=== PATIENT | female | born 1950 | race Caucasian/White ===

== ENCOUNTER → 2016-09-14 | Day surgery (SDC) | payer MEDICARE, BC ==
[~2016-09-14] MED LIST: IOHEXOL 180 MG/ML 1 ML ML ONE; LACTATED RINGERS 1,000 ML IV SCH; LIDOCAINE 1% 20 ML VIAL (10MG/ML) FOR IV START INTRADERMA ONE; MIDAZOLAM 2 MG/2 ML VIAL ONE; TRIAMCINOLONE ACETONIDE 40 MG/ML 1 ML VIAL ONE; fentaNYL (PF) 50 MCG/ML 2 ML AMP ONE
[2016-09-14 07:29] VITALS: TEMP 98.2
--- NOTE | 2016-09-14 08:53 | P.PCN ---
Date of Procedure: 09/14/16 Procedure(s) Performed: PREOPERATIVE DIAGNOSIS:1- Lumbar post laminectomy syndrome. 2-cervical spondylosis with cervical facet arthropathy without myelopathy. 3-cervical degenerative disc disease POSTOPERATIVE DIAGNOSIS: Same as preoperative diagnosis PROCEDURE: 1. Caudal epidural steroid injection under fluoroscopic guidance. 2. Caudal epidurogra ANESTHESIA =Local with 1% lidocaine; 5ml for subcutaneous infiltrations and IV versed 1 mg ,and fentanyl 50 mcg EBL: None. PROCEDURE INDICATION: The patient with neuropathic pain radiating distally returns for caudal epidural steroid injection. PROCEDURE DESCRIPTION: The patient was seen and identified in the preoperative area. Risks, benefits, complications, and alternatives were discussed with the patient. The patient agreed to proceed with the procedure and signed the consent. IV was started, and vital signs were stable. Patient was taken to the OR and time out was completed. The patient was placed in the prone position on procedure table and a pillow was placed under the abdomen to reduce lumbar lordosis. The lumbosacral area was prepped and draped in the usual sterile fashion. Critical pause was taken. Vital signs were closely monitored during the procedure. Using lateral fluoroscopy the anterior-posterior plates of the sacrum were identified and the skin and deeper tissues corresponding into sacrococcygeal ligament were anesthetized using approximately 3 mL of 1% lidocaine. Then under fluoroscopy, a 3-1/2-inch 20-gauge Tuohy epidural needle was guided through the sacrococcygeal ligament, and into the epidural space. After negative aspiration , a 2 mL of omnipaque-180 contrast dye was injected with excellent epidurogram. Again after negative aspiration for CSF, blood, and with no paresthesias, Kenalog 80mg, 2ml of 1% preservative free Lidocaine with 6 ml of preservative free normal saline(total of 10ml)solution was injected with washout of epidurogram. Needle was withdrawn intact. Skin was cleansed, and bandage was applied. COMPLICATIONS: None DISPOSITION / PLANS: The patient was placed in a supine position and transferred to the recovery area in a stable condition for observation and was discharged from the recovery room after meeting discharge criteria. Home discharge instructions given to the patient by the staff. The patient was reexamined prior to discharge. The patient will schedule a follow up in the clinic in 2-4 weeks. Patient was seen in the office a few weeks ago and she was complaining of neck pain we ordered MRI of the cervical spine on the MRI showed patient had cervical spondylosis with cervical facet arthropathy, and also cervical degenerative disc disease, the patient will be seen in the office in a few weeks and will discuss with the patient the option of doing diagnostic medial branch block cervical area, to help her neck pain
[2016-09-14] MEDS: IV FLUID CONTINUATION 1,000 ML IV ONE ×2 (09:00→09:22)
--- NOTE | 2016-09-14 09:10 | FL ---
EXAMINATION TYPE: FL guided pain mgmt statistic DATE OF EXAM: 09/14/2016 8:54 AM CLINICAL HISTORY: Low back and sacral pain. TECHNIQUE: Fluoroscopy. COMPARISON: None. FINDINGS: Fluoroscopic guidance was provided during pain relief procedure performed by Dr. Andino . A total of 10 seconds of fluoroscopic time was utilized during the procedure and two spot images a re acquired. Images acquired shows needle localization at level of the sacrum. IMPRESSION: As Above.
[2016-09-14 09:19] VITALS: BP 144/66; PULSE 71; RESP 16
== END ==
LOC: ORPAIN 06:45
PROVIDERS: ATTEND Specialist
DX: M96.1 Postlaminectomy syndrome, not elsewhere classified (principal); M51.36 Other intervertebral disc degeneration, lumbar region; M47.812 Spondylosis without myelopathy or radiculopathy, cervical region; M46.92 Unspecified inflammatory spondylopathy, cervical region; M50.30 Other cervical disc degeneration, unspecified cervical region; Z79.82 Long term (current) use of aspirin
CPT/HCPCS: 62323; 99152; J2250; J3301; Q9965; J3010

== ENCOUNTER → 2016-09-21 | Outpatient (CLI) | payer MEDICARE, BC ==
[2016-09-21 14:24] VITALS: BP 156/70; PULSE 73; RESP 16
--- NOTE | 2016-09-21 14:36 | P.PN ---
Progress Note - Text Patient returns for followup for chronic neck and back pain with radiation to legs. Patient recently underwent caudal epidural steroid injection x 2 with good relief of her back and leg pain but now is complaining of neck pain. Patient previously had cervical RFAs in 2015 with good relief Patient continues on medications from PCP for pain with good relief. Patient denies adverse drug effects from medications. Today, pt denies new-onset weakness, bowel/bladder incontinence, or any other signs or symptoms of cauda equina syndrome. There are no signs of acute intoxication, and no indications of medication diversion or overuse. In addition to above, 13-point review of systems is also negative for chest pain , shortness of breath, changes in vision, changes in hearing, new onset weakness , abdominal pain, diarrhea, extreme fatigue, malaise, fever, skin changes, homicidal or suicidal ideation, or bowel or bladder incontinence. Vital Signs: Reviewed in EMR Gen: WDWN, AAOx3, NAD HEENT: NCAT, EOMI, hearing grossly normal Pulm: resp unlabored Abd: soft, NT, ND Neck: supple, trachea midline ROM in flexion cervical spine: reduced ROM in extension cervical spine: reduced Cervical paravertebral tenderness: + Cervical Facet tenderness: ++ Spurling's: neg Upper extremity: decreased strength due to pain ROM in flexion lumbar spine: reduced ROM in extension lumbar spine: reduced Lumbar paravertebral tenderness: + L > R Facet loading: ++ Neuro: CN II-XII grossly intact, muscle strength lower extremities PRESERVED Imaging: Reviewed in EMR Assessment: 1. lumbar postlaminectomy syndrome 2. cervical spondylosis without myelopathy 3. lumbar spondylosis without myelopathy Plan: 1. Explanation: Opioid and psychological risk scores were reviewed. Diagnoses , prognoses, and multiple treatment options including but not limited to physical therapy, interventional therapies, adjuvant medical therapies, narcotic medication therapies, and surgery were discussed with the patient and all questions were answered to the patient's satisfaction. 2. Opioid agreement: no narcotics prescribed 3. Counseling: The patient was counseled extensively on BODY MASS INDEX, EXERCISE. Specifically, the patient was instructed regarding the importance of weight loss and exercise in the context of both chronic pain and overall health. 4. Procedures: repeat left then right cervical RFA 5. Consultations: None 6. Investigations: None 7. Medications: none prescribed 8. Disposition: f/u for procedure as scheduled PQRS measures: 1-Patient's medications are documented in the chart. 2-Tobacco use is negative 3-Patient has had a pneumococcal vaccine. 4-Advanced care planning discussed, patient unable to give. 5-Opioid contract signed with the patient. 6-Pain positive, follow-up visit or procedure scheduled 7-Patient's blood pressure measured and documented, within normal limits. 8-Patient's weight was measured, and body mass index ABOVE the normal limits, and counseling was done. Patient instructed to follow up with PCP. 9-Patient WAS NOT identified as an unhealthy alcohol user.
== END | disposition home or self-care (01) ==
LOC: PNWHC3 14:02
PROVIDERS: ATTEND Anesthesiology
DX: M96.1 Postlaminectomy syndrome, not elsewhere classified (principal); M47.812 Spondylosis without myelopathy or radiculopathy, cervical region; M47.816 Spondylosis without myelopathy or radiculopathy, lumbar region
CPT/HCPCS: 99211

== ENCOUNTER → 2017-05-19 | Outpatient (CLI) | payer MEDICARE, BC ==
--- NOTE | 2017-05-19 12:19 | P.PN ---
Progress Note - Text Patient returns for followup for chronic neck and back pain with radiation to legs, worst in R low back and hip area. Patient has not been to our clinic since September of 2016 and returns with complaints of low back and neck pain. In late 2015, patient underwent caudal epidural steroid injection x 2 with good relief of her back and leg pain and previously had cervical RFAs in 2014 with good relief. Patient has seen Dr. Urban who diagnosed her with SIJ dysfunction. Patient continues on occasional medications from PCP for pain with good relief. Patient denies adverse drug effects from medications. Today, pt denies new-onset weakness, bowel/bladder incontinence, or any other signs or symptoms of cauda equina syndrome. There are no signs of acute intoxication, and no indications of medication diversion or overuse. In addition to above, 13-point review of systems is also negative for chest pain , shortness of breath, changes in vision, changes in hearing, new onset weakness , abdominal pain, diarrhea, extreme fatigue, malaise, fever, skin changes, homicidal or suicidal ideation, or bowel or bladder incontinence. Vital Signs: Reviewed in EMR Gen: WDWN, AAOx3, NAD HEENT: NCAT, EOMI, hearing grossly normal Pulm: resp unlabored Abd: soft, NT, ND Neck: supple, trachea midline ROM in flexion lumbar spine: reduced ROM in extension lumbar spine: reduced Lumbar paravertebral tenderness: + L > R Facet loading: ++ Straight leg raise: neg SIJ tenderness: bilateral Juan's: + bilateral, R > L Neuro: CN II-XII grossly intact, muscle strength lower extremities PRESERVED Imaging: Reviewed in EMR Assessment: 1. lumbar postlaminectomy syndrome 2. cervical spondylosis without myelopathy 3. lumbar spondylosis without myelopathy 4. SI joint dysfunction Plan: 1. Explanation: Opioid and psychological risk scores were reviewed. Diagnoses , prognoses, and multiple treatment options including but not limited to physical therapy, interventional therapies, adjuvant medical therapies, narcotic medication therapies, and surgery were discussed with the patient and all questions were answered to the patient's satisfaction. 2. Opioid agreement: no opioids prescribed today 3. Counseling: The patient was counseled extensively on BODY MASS INDEX, EXERCISE. Specifically, the patient was instructed regarding the importance of weight loss and exercise in the context of both chronic pain and overall health. 4. Procedures: bilateral SIJ injection x 2, consider repeat caudal ESIs in future if little relief 5. Consultations: None 6. Investigations: None 7. Medications: none prescribed 8. Disposition: f/u for procedure as scheduled PQRS measures: 1-Patient's medications are documented in the chart. 2-Tobacco use is negative 3-Patient has had a pneumococcal vaccine. 4-Advanced care planning discussed, patient unable to give. 5-Opioid contract signed with the patient. 6-Pain positive, follow-up visit or procedure scheduled 7-Patient's blood pressure measured and documented, within normal limits. 8-Patient's weight was measured, and body mass index ABOVE the normal limits, and counseling was done. Patient instructed to follow up with PCP. 9-Patient WAS NOT identified as an unhealthy alcohol user.
[2017-05-19 12:41] VITALS: BP 118/69; PULSE 86; RESP 16; TEMP 96
== END | disposition home or self-care (01) ==
LOC: PNWHC3 11:45
PROVIDERS: ATTEND Anesthesiology
DX: M96.1 Postlaminectomy syndrome, not elsewhere classified (principal); M47.812 Spondylosis without myelopathy or radiculopathy, cervical region; M47.816 Spondylosis without myelopathy or radiculopathy, lumbar region; M53.3 Sacrococcygeal disorders, not elsewhere classified; Z79.899 Other long term (current) drug therapy
CPT/HCPCS: 99211

== ENCOUNTER 2017-05-23 06:47 | Day surgery (SDC) | payer MEDICARE, BC ==
[2017-05-20 08:43] VITALS: BMI 29.2
[~2017-05-23 06:47] MED LIST changes: -IOHEXOL 180 MG/ML 1 ML ML ONE; -LIDOCAINE 1% 20 ML VIAL (10MG/ML) FOR IV START INTRADERMA ONE; -MIDAZOLAM 2 MG/2 ML VIAL ONE; -TRIAMCINOLONE ACETONIDE 40 MG/ML 1 ML VIAL ONE; -fentaNYL (PF) 50 MCG/ML 2 ML AMP ONE
[2017-05-23] MEDS ORDERED: LIDOCAINE 1% 20 ML VIAL (10MG/ML) FOR IV START INTRADERMA ONE (06:51)
[2017-05-23 06:54] VITALS: RESP 16; TEMP 97.9
--- NOTE | 2017-05-23 07:30 | P.PCN ---
Date of Procedure: 05/23/17 Preoperative Diagnosis: Bilateral sacroiliitis Postoperative Diagnosis: Same as above Procedure(s) Performed: Bilateral sacroiliac joint steroid injection under fluoroscopic guidance Anesthesia: other ( moderate conscious sedation with IV fentanyl and Versed) Surgeon: Dana Walker Pathology: none sent Condition: stable Disposition: PACU Description of Procedure: the patient was seen and identified in the preoperative holding area, risks and benefits and alternative of the procedure and possible complications discussed with the patient, patient signed the consent. an IV was started, and vital signs were monitored and were stable throughout the procedure, patient was placed in the prone position or table and the lumbosacral area was prepped and draped with a sterile fashion, vital signs were closely monitored during the procedure.The right sacroiliac joint was identified on the AP view of fluoroscopy then the C-arm was tilted to the left oblique position to superimpose the anterior and posterior joint lines on each other and to have a unified joint line with the target point at the inferior one third of this line. I used 22-gauge 3-1/2 inch Quincke spinal needle for this procedure and after getting into the sacroiliac joint I injected 20 mg of Kenalog +2 MLS of Marcaine 0.5%. The same procedure was repeated on the left side by tilting the C-arm to the right oblique position this time. At the target point was also at the inferior one third of this unified joint line. Using a 22-gauge 3-1/2 inch Quincke spinal needle I injected 20 mg of Kenalog plus 2 MLS of Marcaine 0.5%. Patient tolerated the procedure well without any complication, The patient returned to supine position after the back was cleaned and a Band- Aid applied, the patient transported to recovery room in stable condition and he was monitored for 30 minutes before he was discharged home and then patient was reexamined before going home and patient was discharged in stable condition and patient will follow up with the pain clinic in a few weeks
[2017-05-23] MEDS ORDERED: IV FLUID CONTINUATION 1,000 ML IV ONE (07:33)
--- NOTE | 2017-05-23 07:44 | FL ---
EXAMINATION TYPE: FL guided pain mgmt statistic DATE OF EXAM: 05/23/2017 CLINICAL HISTORY: Low back pain. TECHNIQUE: Fluoroscopy. COMPARISON: None. FINDINGS: Fluoroscopic guidance was provided during pain relief procedure performed by Dr. Andino . A total of 15 seconds of fluoroscopic time was utilized during the procedure and two spot images a re acquired. Images acquired shows needle localization at the SI joints. IMPRESSION: As Above.
[2017-05-23 08:06] VITALS: BP 143/70; PULSE 78
== END 2017-05-23 08:16 | disposition home or self-care (01) ==
LOC: ORPAIN 06:47
PROVIDERS: ATTEND Anesthesiology
DX: M46.1 Sacroiliitis, not elsewhere classified (principal)
CPT/HCPCS: 99152; J2250; J3301; J3010; G0260

== ENCOUNTER 2017-06-09 08:21 | Day surgery (SDC) | payer MEDICARE, BC ==
[2017-06-09 09:20] VITALS: TEMP 98
--- NOTE | 2017-06-09 10:18 | P.PCN ---
Date of Procedure: 06/09/17 Procedure(s) Performed: Preoperative diagnoses= 1-bilateral sacroiliitis. Postoperative diagnoses= same as preoperative diagnosis. Procedure= bilateral sacroiliac joint steroid injection under fluoroscopic guidance. Anesthesia= conscious sedation with Versed 2 mg and fentanyl 100 micrograms and local infiltration with lidocaine 1% 4 ml Estimated blood loss=minimal. Procedure indication= the patient had a history of severe chronic low back pain , diagnosed with sacroiliitis and lumbar sacral facet arthropathy unresponsive to conservative treatment. Procedure description= the patient was seen and identified in the preoperative holding area, risks and benefits and alternative of the procedure and possible complications discussed with the patient, and he agreed with the preceding, patient signed the consent, an IV was started, and vital signs were monitored and were stable throughout the procedure, patient was placed in the prone position or table and the lumbosacral area was prepped and draped with a sterile fashion, vital signs were closely monitored during the procedure, the fluoroscopy camera was placed in the contralateral oblique view on the right sacroiliac joint and the lower part of the joint was identified, local infiltration of the skin and subcutaneous tissue with lidocaine 1% 2 mL then a 22-gauge Quincke-type spinal needle advanced slowly under fluoroscopy and placed in the posterior and inferior border of the right sacroiliac joint, placement confirmed with AP and lateral view, and after appropriate needle placement confirmed and after negative aspiration for heme and CSF and there was no paresthesia during the injection, 3 ml of Marcaine 0.5% and 40 mg of Kenalog injected after negative aspiration, the needle removed, and the entire same procedure was repeated for the left sacroiliac joint Patient tolerated the procedure well without any complication, The patient returned to supine position after the back was cleaned and a Band- Aid applied, the patient transported to recovery room in stable condition and he was monitored for 30 minutes before he was discharged home and then patient was reexamined before going home and patient was discharged in stable condition and patient will follow up with the pain clinic in a few weeks
[2017-06-09] MEDS ORDERED: IV FLUID CONTINUATION 600 ML IV ONE (10:25)
[2017-06-09 10:31] VITALS: RESP 18
[2017-06-09 11:00] VITALS: BP 122/70; PULSE 83
--- NOTE | 2017-06-09 13:39 | FL ---
EXAMINATION TYPE: FL guided pain mgmt statistic DATE OF EXAM: 06/09/2017 FLUOROSCOPY Fluoroscopy time of 6 seconds was used during bilateral SI joint injection. 2 image/s document/s the procedure.
== END 2017-06-09 11:01 | disposition home or self-care (01) ==
LOC: ORPAIN 08:21
PROVIDERS: ATTEND Specialist
DX: G89.29 Other chronic pain (principal); M46.1 Sacroiliitis, not elsewhere classified
CPT/HCPCS: J2250; J3301; J3010; G0260; 99152

== ENCOUNTER 2017-07-07 07:40 | Day surgery (SDC) | payer MEDICARE, BC ==
[2017-07-05 14:39] VITALS: BMI 30.2
[2017-07-07 08:20] VITALS: RESP 16; TEMP 98.1
[2017-07-07] MEDS ORDERED: LIDOCAINE 1% 20 ML VIAL (10MG/ML) FOR IV START INTRADERMA ONE (08:23)
--- NOTE | 2017-07-07 09:24 | P.PCN ---
Date of Procedure: 07/07/17 Procedure(s) Performed: PREOPERATIVE DIAGNOSIS: 1-Lumbosacral spondylosis with facet arthropathy without myelopathy. 2-sacroiliit. 3-sacroiliac joint dysfunction 4- FBSS post operative Diagnosis: Same as Pre operative Diagnosis PROCEDURES: 1- Right radiofrequency thermocoagulation/ablation of the L5 dorsal ramus. 2- Right multi-site radiofrequency thermocoagulation/ablation of the S1, S2, lateral branchs. The procedure was performed using fluoroscopic guidance during needle placement to assure proper position and maximize safety . ANESTHESIA: LOCAL ANESTHESIA and IV sedation with versed 2 mg and Fentanyle 100 mcg EBL: NONE INDICATION/MEDICAL NECESSITY: History of low back pain secondary to sacroiliitis /sacroiliac joint dysfunction ,and lumbosacral arthropathy unresponsive to more conservative treatments. The patient reported more than 50% relief of pain symptoms following 2 previous diagnostic blocks with Bupivacaine. PROCEDURE DESCRIPTION: The patient was seen and identified in the preoperative area. Risks, benefits, complications, and alternatives were discussed with the patient. The patient agreed to proceed with the procedure and signed the consent. Vital signs were checked before and after the procedure and they remained stable. Patient ambulated to the procedure room and time out was completed. The patient was placed in the prone position on the procedure table and a pillow was placed under the abdomen to reduce lumbar lordosis. The lumbosacral area was prepped and draped in the usual sterile fashion. Critical pause was taken. L5 Dorsal Ramus RF: Using right oblique fluoroscopy, the junction of the transverse process and the superior articular process of the right S1 vertebra, which correspond to the fluoroscopic image of the "eye of the Maurice dog" was identified. Subsequently, a 10-cm 20 -gauge radiofrequency cannula with a 10-mm active tip was advanced under fluoroscopic guidance until contact was made with periosteum. At this level, the Sensory testing of the L5 dorsal ramus was performed at 50 Hz and 0 to 1 volt with production of concordant pain starting at 0.5 volt. Motor stimulation was done at 2.5 Hz with stimulation of mulitifidus muscle contration . No radicular symptoms or paresthesias were produced during the testing. Subsequently, the L5 dorsal ramus was subjected to a radiofrequency ablation at 80 degree celsius for 90 seconds . after 0.5% Bupivacaine 1 ml injected at each level after negative aspirations . S1, S3, Lateral Branch RF: The lateral margins of the Right S1, S2, foramina were identified using AP fluoroscopy. Under fluoroscopic guidance, three 10-cm 20 -gauge radiofrequency cannula with a 10-mm active tip were inserted at 8-10 mm peripheral to the posterior S1 foramen, at various locations using clock-face coordinates. The center of the clock was registered at the lateral margin of the foramen. The 2: 30, 4:00, and 5:30 oclock positions were used. At this level, the sensory testing of the S1 lateral branch was performed at 50 Hz and 0 to 1 volt at the three levels with production of concordant pain starting at 0.5 volt. Motor stimulation was done at 2.5 Hz. No radicular symptoms or paresthesias were produced during the testing. Subsequently, the S1 lateral branch was subjected to a radiofrequency ablation at a mode of 90 seconds at 80 degrees Celsius at the 3 levels after negative motor and sensory testing and after injecting 0.5 ml of preservative free Bupivacaine 0.5 %. The same procedure was performed at the level of the S2 foramen. I couldn't visualize S3 foraminal for this reason the frequency of the lateral branches of a history and was not done Total 8 ML OF MARCAINE 0.5% WITH 40 MG OF KENALOG , The needle was withdrawn intact after each injection. COMPLICATIONS: The patient tolerated the procedure well without any acute complications. DISPOSTION/PLAN: The patient ambulated to the recovery area after the procedure in a stable condition for observation. Patient was reexamined prior to discharge. Patient was observed for 30 minutes in the recovery area and was discharged home, accompanied by an adult, after meeting discharged criteria. Discharge instructions were give to the patient by the staff. Patient was specifically instructed not to drive today and to rest for the rest of the day. The patient will schedule a follow up visit in the clinic in weeks or earlier if needed.
[2017-07-07] MEDS ORDERED: IV FLUID CONTINUATION 1,000 ML IV ONE (09:26)
[2017-07-07 09:36] VITALS: BP 124/83; PULSE 82
--- NOTE | 2017-07-07 09:52 | FL ---
EXAMINATION TYPE: FL guided pain mgmt statistic DATE OF EXAM: 07/07/2017 CLINICAL HISTORY: Low back and sacroiliac joint pain. TECHNIQUE: Fluoroscopy. COMPARISON: None. FINDINGS: Fluoroscopic guidance was provided during pain relief procedure performed by Dr. Andino . A total of 1 minute 9 seconds of fluoroscopic time was utilized during the procedure and 6 spot im ages are acquired. Images acquired shows needle localization at several levels in the lower lumbar s pine and sacrum. IMPRESSION: As Above.
== END 2017-07-07 09:58 | disposition home or self-care (01) ==
LOC: ORPAIN 07:40
PROVIDERS: ATTEND Specialist
DX: M47.817 Spondylosis without myelopathy or radiculopathy, lumbosacral region (principal); M46.97 Unspecified inflammatory spondylopathy, lumbosacral region; M53.3 Sacrococcygeal disorders, not elsewhere classified
CPT/HCPCS: 64640 ×2; 64635; J2250; J3301; J3010; 99152; 99153

== ENCOUNTER → 2017-09-12 | Outpatient (CLI) | payer MEDICARE, BC ==
[2017-09-12 12:07] VITALS: BP 139/81; PULSE 81; RESP 16; TEMP 97.6
--- NOTE | 2017-09-12 12:36 | P.PN ---
Progress Note - Text Progress Note Date: 09/12/17 Patient returns for followup for chronic neck and back pain with radiation to legs, worst in R low back and hip area. Patient underwent bilateral SIJ RFA and has some pain in her RLE all the way down to her toes that she describes as a soreness, without neuropathic characteristics; this pain is improving since the last couple of weeks. Patient continues on occasional Capac medications from PCP for pain with good relief. Patient denies adverse drug effects from medications. Today, pt denies new-onset weakness, bowel/bladder incontinence, or any other signs or symptoms of cauda equina syndrome. There are no signs of acute intoxication, and no indications of medication diversion or overuse. In addition to above, 13-point review of systems is also negative for chest pain , shortness of breath, changes in vision, changes in hearing, new onset weakness , abdominal pain, diarrhea, extreme fatigue, malaise, fever, skin changes, homicidal or suicidal ideation, or bowel or bladder incontinence. Vital Signs: Reviewed in EMR Gen: WDWN, AAOx3, NAD HEENT: NCAT, EOMI, hearing grossly normal Pulm: resp unlabored Abd: soft, NT, ND Neck: supple, trachea midline ROM in flexion lumbar spine: reduced ROM in extension lumbar spine: reduced Lumbar paravertebral tenderness: + L > R Facet loading: ++ Straight leg raise: neg SIJ tenderness: bilateral Juan's: + bilateral, R > L Neuro: CN II-XII grossly intact, muscle strength lower extremities PRESERVED Imaging: Reviewed in EMR Assessment: 1. lumbar postlaminectomy syndrome 2. cervical spondylosis without myelopathy 3. lumbar spondylosis without myelopathy 4. SI joint dysfunction Plan: 1. Explanation: Opioid and psychological risk scores were reviewed. Diagnoses , prognoses, and multiple treatment options including but not limited to physical therapy, interventional therapies, adjuvant medical therapies, narcotic medication therapies, and surgery were discussed with the patient and all questions were answered to the patient's satisfaction. 2. Opioid agreement: no opioids prescribed today 3. Counseling: The patient was counseled extensively on BODY MASS INDEX, EXERCISE. Specifically, the patient was instructed regarding the importance of weight loss and exercise in the context of both chronic pain and overall health. 4. Procedures: LESI [id number] or caudal SHREYAS if patient's RLE pain doesn't improve 5. Consultations: None 6. Investigations: None 7. Medications: none prescribed 8. Disposition: f/u for procedure as scheduled in 4 weeks PQRS measures: 1-Patient's medications are documented in the chart. 2-Tobacco use is negative 3-Patient has had a pneumococcal vaccine. 4-Advanced care planning discussed, patient unable to give. 5-Opioid contract signed with the patient. 6-Pain positive, follow-up visit or procedure scheduled 7-Patient's blood pressure measured and documented, within normal limits. 8-Patient's weight was measured, and body mass index ABOVE the normal limits, and counseling was done. Patient instructed to follow up with PCP. 9-Patient WAS NOT identified as an unhealthy alcohol user.
== END | disposition home or self-care (01) ==
LOC: PNWHC3 11:56
PROVIDERS: ATTEND Anesthesiology
DX: M47.812 Spondylosis without myelopathy or radiculopathy, cervical region (principal); M47.816 Spondylosis without myelopathy or radiculopathy, lumbar region; M53.3 Sacrococcygeal disorders, not elsewhere classified; M96.1 Postlaminectomy syndrome, not elsewhere classified; Z79.899 Other long term (current) drug therapy
CPT/HCPCS: 99211

== ENCOUNTER 2017-10-12 08:01 | Day surgery (SDC) | payer MEDICARE, BC ==
[2017-10-12 08:29] VITALS: TEMP 97.9
[2017-10-12] MEDS: LACTATED RINGERS 1,000 ML IV ONE ×2 (08:32→09:18)
[2017-10-12] MEDS ORDERED: LIDOCAINE 1% 20 ML VIAL (10MG/ML) FOR IV START INTRADERMA ONE (08:32)
--- NOTE | 2017-10-12 09:36 | P.PCN ---
Date of Procedure: 10/12/17 Procedure(s) Performed: PREOPERATIVE DIAGNOSIS: 1-Lumbar post laminectomy syndrome. 2-bilateral sacroiliitis POSTOPERATIVE DIAGNOSIS:1- Lumbar post laminectomy syndrome. 2-bilateral sacroiliitis PROCEDURE: 1. Caudal epidural steroid injection under fluoroscopic guidance. 2. Caudal epidurogra ANESTHESIA: Local with 1% lidocaine; 5ml for subcutaneous infiltrations and IV versed 2 mg ,and fentanyl 100 mcg EBL: None. PROCEDURE INDICATION: The patient with neuropathic pain radiating distally returns for caudal epidural steroid injection. PROCEDURE DESCRIPTION: The patient was seen and identified in the preoperative area. Risks, benefits, complications, and alternatives were discussed with the patient. The patient agreed to proceed with the procedure and signed the consent. IV was started, and vital signs were stable. Patient was taken to the OR and time out was completed. The patient was placed in the prone position on procedure table and a pillow was placed under the abdomen to reduce lumbar lordosis. The lumbosacral area was prepped and draped in the usual sterile fashion. Critical pause was taken. Vital signs were closely monitored during the procedure. Using lateral fluoroscopy the anterior-posterior plates of the sacrum were identified and the skin and deeper tissues corresponding into sacrococcygeal ligament were anesthetized using approximately 3 mL of 1% lidocaine. Then under fluoroscopy, a 3-1/2-inch 20-gauge Tuohy epidural needle was guided through the sacrococcygeal ligament, and into the epidural space. After negative aspiration , a 2 mL of omnipaque-180 contrast dye was injected with excellent epidurogram. Again after negative aspiration for CSF, blood, and with no paresthesias, Kenalog 80mg, 2ml of 1% preservative free Lidocaine with 6 ml of preservative free normal saline(total of 10ml)solution was injected with washout of epidurogram. Needle was withdrawn intact. Skin was cleansed, and bandage was applied. COMPLICATIONS: None DISPOSITION / PLANS: The patient was placed in a supine position and transferred to the recovery area in a stable condition for observation and was discharged from the recovery room after meeting discharge criteria. Home discharge instructions given to the patient by the staff. The patient was reexamined prior to discharge. The patient will schedule a follow up in the clinic in 2-4 weeks.
[2017-10-12] MEDS ORDERED: IV FLUID CONTINUATION 700 ML IV ONE (09:45)
--- NOTE | 2017-10-12 09:50 | FL ---
EXAMINATION TYPE: FL guided pain mgmt statistic DATE OF EXAM: 10/12/2017 COMPARISON: NONE HISTORY: Fluoroscopic guidance during a caudal epidural TECHNIQUE: Fluoroscopy. FINDINGS/IMPRESSION: Fluoroscopic guidance was provided during procedure performed by Dr. Andino. A total of 9 seconds of fluoroscopic time was utilized during the procedure and 2 spot images was ac quired demonstrating localization of the level of the sacrum.
[2017-10-12 09:51] VITALS: PULSE 85; RESP 16
[2017-10-12 10:18] VITALS: BP 116/69
--- NOTE | 2017-10-14 10:58 | CDI ---
Date: 10/14/17 CDS/Outreach Assistant Name: Kristine Engel Phone: If any questions, call Ilana Ackerman Kosher Butcher at [phone] Patient Name: Libertad Holbrook Admit Date: 10/12/17 Discharge Date: 10/12/17 ATTENTION: The [facility] Coding Staff appreciate your assistance in clarifying documentation. Please respond to the clarification below the line at the bottom and electronically sign. The [facility] Coding staff will review the response and follow-up if needed. Please note: Queries are made part of the Legal Health Record. If you have any questions, please contact the Kosher Butcher. Dear Dr. Walker, Please provide clarification as to what type of sedation was used for this procedure. Please clarify if it was conscious/Moderate sedation or unconscious/ MAC sedation. There is no documentation on the operative report and nothing checked on the Pain Procedure Record. Thank you for your kind consideration. MTDD
--- NOTE | 2017-10-18 06:39 | CDI ---
Date: 10/18/17 CDS/Airfreight Operations Agent Name: Kristine Engel Phone: If any questions, call Ilana Ackerman Test Architect at [phone] Patient Name: Libertad Holbrook Admit Date: 10/12/17 Discharge Date: 10/12/17 ATTENTION: The [facility] Coding Staff appreciate your assistance in clarifying documentation. Please respond to the clarification below the line at the bottom and electronically sign. The [facility] Coding staff will review the response and follow-up if needed. Please note: Queries are made part of the Legal Health Record. If you have any questions, please contact the Test Architect. Dear Please provide clarification on the type of sedation used. Please clarify if it was conscious/Moderate sedation or MAC/unconscious sedation. Nothing is stated on the Operatve report and nothing checked on the Pre-anesthesia record. Thank you for your kind consideration. MTDD
--- NOTE | 2017-10-25 07:33 | P.PN ---
Progress Note - Text Progress Note Date: 10/25/17 This is an addendum to the procedure was done in 10/12/2017, The procedure was done under moderate sedation ,with Versed and fentanyl.
== END 2017-10-12 10:22 | disposition home or self-care (01) ==
LOC: ORPAIN 08:01
PROVIDERS: ATTEND Specialist
DX: M96.1 Postlaminectomy syndrome, not elsewhere classified (principal); M46.1 Sacroiliitis, not elsewhere classified; M47.816 Spondylosis without myelopathy or radiculopathy, lumbar region; I10 Essential (primary) hypertension; E03.8 Other specified hypothyroidism
CPT/HCPCS: 62323; J2250; J3301; Q9965; J3010

== ENCOUNTER → 2017-12-20 | Outpatient (CLI) | payer MEDICARE, BC ==
[2017-12-20 11:59] VITALS: BP 130/68; PULSE 83; RESP 18
--- NOTE | 2017-12-20 12:04 | P.PN ---
Progress Note - Text Progress Note Date: 12/20/17 Patient returns for followup for chronic neck and back pain with radiation to legs, worst in R low back and hip area. Patient underwent caudal SHREYAS with 5-6 weeks' worth of pain relief from last procedure in October. Patient continues on occasional Moran medications from PCP for pain with good relief. Patient denies adverse drug effects from medications. Today, pt denies new-onset weakness, bowel/bladder incontinence, or any other signs or symptoms of cauda equina syndrome. There are no signs of acute intoxication, and no indications of medication diversion or overuse. In addition to above, 13-point review of systems is also negative for chest pain , shortness of breath, changes in vision, changes in hearing, new onset weakness , abdominal pain, diarrhea, extreme fatigue, malaise, fever, skin changes, homicidal or suicidal ideation, or bowel or bladder incontinence. Vital Signs: Reviewed in EMR Gen: WDWN, AAOx3, NAD HEENT: NCAT, EOMI, hearing grossly normal Pulm: resp unlabored Abd: soft, NT, ND Neck: supple, trachea midline ROM in flexion lumbar spine: reduced ROM in extension lumbar spine: reduced Lumbar paravertebral tenderness: + L > R Facet loading: ++ Straight leg raise: neg SIJ tenderness: bilateral Juan's: + bilateral, R >> L Neuro: CN II-XII grossly intact, muscle strength lower extremities PRESERVED Imaging: Reviewed in EMR Assessment: 1. lumbar postlaminectomy syndrome 2. cervical spondylosis without myelopathy 3. lumbar spondylosis without myelopathy 4. SI joint dysfunction Plan: 1. Explanation: Opioid and psychological risk scores were reviewed. Diagnoses , prognoses, and multiple treatment options including but not limited to physical therapy, interventional therapies, adjuvant medical therapies, narcotic medication therapies, and surgery were discussed with the patient and all questions were answered to the patient's satisfaction. 2. Opioid agreement: no opioids prescribed today 3. Counseling: The patient was counseled extensively on BODY MASS INDEX, EXERCISE. Specifically, the patient was instructed regarding the importance of weight loss and exercise in the context of both chronic pain and overall health. 4. Procedures: repeat caudal SHREYAS 5. Consultations: None 6. Investigations: None 7. Medications: none prescribed 8. Disposition: f/u for procedure as scheduled PQRS measures: 1-Patient's medications are documented in the chart. 2-Tobacco use is negative 3-Patient has had a pneumococcal vaccine. 4-Advanced care planning discussed, patient unable to give. 5-Opioid contract signed with the patient. 6-Pain positive, follow-up visit or procedure scheduled 7-Patient's blood pressure measured and documented, within normal limits. 8-Patient's weight was measured, and body mass index ABOVE the normal limits, and counseling was done. Patient instructed to follow up with PCP. 9-Patient WAS NOT identified as an unhealthy alcohol user.
== END | disposition home or self-care (01) ==
LOC: PNWHC3 11:36
PROVIDERS: ATTEND Anesthesiology
DX: M47.812 Spondylosis without myelopathy or radiculopathy, cervical region (principal); M47.816 Spondylosis without myelopathy or radiculopathy, lumbar region; M53.3 Sacrococcygeal disorders, not elsewhere classified; M96.1 Postlaminectomy syndrome, not elsewhere classified; M54.2 Cervicalgia; Z79.891 Long term (current) use of opiate analgesic
CPT/HCPCS: 99211

== ENCOUNTER → 2018-01-24 | Day surgery (SDC) | payer MEDICARE, BC ==
[2018-01-19 08:51] VITALS: BMI 30.2
[~2018-01-24] MED LIST changes: +IV FLUID CONTINUATION 1,000 ML IV ONE; +LIDOCAINE 1% 20 ML VIAL (10MG/ML) FOR IV START INTRADERMA ONE
[2018-01-24 06:59] VITALS: RESP 16; TEMP 97.8
--- NOTE | 2018-01-24 07:27 | P.PCN ---
Date of Procedure: 01/24/18 Procedure(s) Performed: PREOPERATIVE DIAGNOSIS: Lumbar post laminectomy syndrome. POSTOPERATIVE DIAGNOSIS: Lumbar post laminectomy syndrome. PROCEDURE: 1. Caudal epidural steroid injection under fluoroscopic guidance. 2. Caudal epidurogra ANESTHESIA: Local with 1% lidocaine 3ml for subcutaneous infiltrations ,and IV versed 2 mg ,and fentanyl 100 mcg EBL: None. PROCEDURE INDICATION: The patient with chronic low back pain radiating distally returns for caudal epidural steroid injection. PROCEDURE DESCRIPTION: The patient was seen and identified in the preoperative area. Risks, benefits, complications, and alternatives were discussed with the patient. The patient agreed to proceed with the procedure and signed the consent. IV was started, and vital signs were stable. Patient was taken to the OR and time out was completed. The patient was placed in the prone position on procedure table and a pillow was placed under the abdomen to reduce lumbar lordosis. The lumbosacral area was prepped and draped in the usual sterile fashion. Critical pause was taken. Vital signs were closely monitored during the procedure. Using lateral fluoroscopy the anterior-posterior plates of the sacrum were identified and the skin and deeper tissues corresponding into sacrococcygeal ligament were anesthetized using approximately 3 mL of 1% lidocaine. Then under fluoroscopy, a 3-1/2-inch 20-gauge Tuohy epidural needle was guided through the sacrococcygeal ligament, and into the epidural space. After negative aspiration , a 2 mL of isoviu 200 mg contrast dye was injected with excellent epidurogram. Again after negative aspiration for CSF, blood, and with no paresthesias, depomedrol 80mg, 2ml of 1% preservative free Lidocaine with 6 ml of preservative free normal saline(total of 10ml)solution was injected with washout of epidurogram. Needle was withdrawn intact. Skin was cleansed, and bandage was applied. COMPLICATIONS: None DISPOSITION / PLANS: The patient was placed in a supine position and transferred to the recovery area in a stable condition for observation and was discharged from the recovery room after meeting discharge criteria. Home discharge instructions given to the patient by the staff. The patient was reexamined prior to discharge. The patient will schedule a follow up in the clinic in 2-4 weeks.
--- NOTE | 2018-01-24 07:43 | FL ---
Fluoroscopy INDICATION: Pain FINDINGS: Fluoroscopy time: 14 seconds. Images obtained: 2. IMPRESSIONS: 1. Documentation of fluoroscopy.
[2018-01-24 07:49] VITALS: BP 138/79; PULSE 60
== END | disposition home or self-care (01) ==
LOC: ORPAIN 06:29
PROVIDERS: ATTEND Specialist
DX: M96.1 Postlaminectomy syndrome, not elsewhere classified (principal); G89.29 Other chronic pain; I10 Essential (primary) hypertension; E07.9 Disorder of thyroid, unspecified; K21.9 Gastro-esophageal reflux disease without esophagitis
CPT/HCPCS: 62323; J2250; J1030; J3010; Q9966; 99152

== ENCOUNTER 2018-02-16 08:00 | Day surgery (SDC) | payer MEDICARE, BC ==
[~2018-02-16 08:00] MED LIST changes: -IV FLUID CONTINUATION 1,000 ML IV ONE; -LIDOCAINE 1% 20 ML VIAL (10MG/ML) FOR IV START INTRADERMA ONE
--- NOTE | 2018-02-16 08:11 | P.PCN ---
Date of Procedure: 02/16/18 Description of Procedure: PREOPERATIVE DIAGNOSIS: Lumbar post laminectomy syndrome. POSTOPERATIVE DIAGNOSIS: Lumbar post laminectomy syndrome. PROCEDURE: 1. Caudal epidural steroid injection under fluoroscopic guidance. 2. Caudal epidurogram ANESTHESIA: Local with 1% lidocaine 3ml for subcutaneous infiltrations ,and IV versed 2 mg ,and fentanyl 100 mcg EBL: None. PROCEDURE INDICATION: The patient with chronic low back pain radiating distally returns for caudal epidural steroid injection. PROCEDURE DESCRIPTION: The patient was seen and identified in the preoperative area. Risks, benefits, complications, and alternatives were discussed with the patient. The patient agreed to proceed with the procedure and signed the consent. IV was started, and vital signs were stable. Patient was taken to the OR and time out was completed. The patient was placed in the prone position on procedure table and a pillow was placed under the abdomen to reduce lumbar lordosis. The lumbosacral area was prepped and draped in the usual sterile fashion. Critical pause was taken. Vital signs were closely monitored during the procedure. Using lateral fluoroscopy the anterior-posterior plates of the sacrum were identified and the skin and deeper tissues corresponding into sacrococcygeal ligament were anesthetized using approximately 3 mL of 1% lidocaine. Then under fluoroscopy, a 3-1/2-inch 20-gauge Tuohy epidural needle was guided through the sacrococcygeal ligament, and into the epidural space. After negative aspiration , a 2 mL of isoviu 200 mg contrast dye was injected with excellent epidurogram. Again after negative aspiration for CSF, blood, and with no paresthesias, Kenalog 80mg with 6 ml of preservative free normal saline(total of 10ml)solution was injected with washout of epidurogram. Needle was withdrawn intact. Skin was cleansed, and bandage was applied. COMPLICATIONS: None DISPOSITION / PLANS: The patient was placed in a supine position and transferred to the recovery area in a stable condition for observation and was discharged from the recovery room after meeting discharge criteria. Home discharge instructions given to the patient by the staff. The patient was reexamined prior to discharge. The patient will schedule a follow up in the clinic in 2-4 weeks.
[2018-02-16 08:14] VITALS: RESP 16; TEMP 98.1
[2018-02-16] MEDS ORDERED: LIDOCAINE 1% 20 ML VIAL (10MG/ML) FOR IV START INTRADERMA ONE (08:20)
[2018-02-16] MEDS ORDERED: IV FLUID CONTINUATION 1,000 ML IV ONE (08:51)
[2018-02-16 09:12] VITALS: BP 129/61; PULSE 62
--- NOTE | 2018-02-16 09:18 | FL ---
EXAMINATION TYPE: FL guided pain mgmt statistic DATE OF EXAM: 02/16/2018 CLINICAL HISTORY: Low back pain. TECHNIQUE: Fluoroscopy. COMPARISON: None. FINDINGS: Fluoroscopic guidance was provided during pain relief procedure performed by Dr. Berry . A total of 1 minute 47 seconds of fluoroscopic time was utilized during the procedure and two spot i mages are acquired. Images acquired shows needle localization at level of lumbosacral junction with contrast injection. IMPRESSION: As Above.
--- NOTE | 2018-02-18 08:04 | CDI ---
Date: 02/18/18 CDS/Typing Secretary Name: Kristine Engel Phone: If any questions, call Ilana Ackerman Tack Driller at [phone] Patient Name: Libertad Holbrook Admit Date: 02/16/18 Discharge Date: 02/16/18 ATTENTION: The [facility] Coding Staff appreciate your assistance in clarifying documentation. Please respond to the clarification below the line at the bottom and electronically sign. The [facility] Coding staff will review the response and follow-up if needed. Please note: Queries are made part of the Legal Health Record. If you have any questions, please contact the Tack Driller. Dear Dr. Berry, Please provide clarification as to the type of sedation provided. Please specify if Moderate/conscious sedation or MAC/unconscious sedation was provided. Thank you for your kind consideration. Moderate sedation. MTDD
== END 2018-02-16 09:29 | disposition home or self-care (01) ==
LOC: ORPAIN 08:00
PROVIDERS: ATTEND Anesthesiology
DX: G89.29 Other chronic pain (principal); M96.1 Postlaminectomy syndrome, not elsewhere classified; G96.12 Meningeal adhesions (cerebral) (spinal); I10 Essential (primary) hypertension
CPT/HCPCS: 62264; J2250; J3301; J3010; Q9966; C1894; 62323; 99152

== ENCOUNTER → 2018-03-13 | Outpatient (CLI) | payer MEDICARE, BC ==
[2018-03-13 14:24] VITALS: BP 126/58; PULSE 65; RESP 16
--- NOTE | 2018-03-13 14:50 | P.PN ---
Subjective Progress Note Date: 03/13/18 This is a 67-year-old female with history of chronic lower back pain . She had caudal epidural steroid injection multiple times but she seemed the best results after the first one that she received in October however the last one did not give her good pain relief. Most of her pain is in the lower back area and the lumbar sacral junction and upper sacrum. The pain does not wake the patient up at night. She uses [place] 5 mg twice a day and she gets the prescription from her neurologist. She tried Lyrica and Neurontin previously with very limited benefits. Today, pt denies new-onset weakness, bowel/bladder incontinence, or any other signs or symptoms of cauda equina syndrome. There are no signs of acute intoxication, and no indications of medication diversion or overuse. In addition to above, 13-point review of systems is also negative for chest pain , shortness of breath, changes in vision, changes in hearing, new onset weakness , abdominal pain, diarrhea, extreme fatigue, malaise, fever, skin changes, homicidal or suicidal ideation, or bowel or bladder incontinence. Vital Signs: Reviewed in EMR Gen: AAOx3, NAD HEENT: PERRLA,hearing grossly normal Pulm: resp unlabored Neck: supple, trachea midline Neuro: CN II-XII grossly intact, She has mild tenderness in the lumbar sacral area Imaging: Reviewed in EMR/chart Assessment: Lumbar postlaminectomy pain syndrome Plan: 1. Explanation: Opioid and psychological risk scores were reviewed. Diagnoses , prognoses, and multiple treatment options including but not limited to physical therapy, interventional therapies, adjuvant medical therapies, narcotic medication therapies, and surgery were discussed with the patient and all questions were answered to the patient's satisfaction. 2. Opioid agreement: Signed with the patient and the patient is warned not to use opioids while driving or before driving and not to combine opioids with benzodiazepines or alcohol. 3. Counseling: The patient was counseled extensively on SMOKING CESSATION, BODY MASS INDEX, EXERCISE. Specifically, the patient was instructed regarding the importance of smoking cessation, obesity, and exercise in the context of both chronic pain and overall health. 4. Procedures: The patient may benefit from getting spinal cord stimulator trial with the higher frequency. Since we don't do this procedure and [facility] and going to refer her to [facility] at [facility]. 5. Consultations: None 6. Investigations: None 7. Medications: No prescriptions given to the patient 8. Disposition: Follow up in this clinic as needed Objective - Vital Signs Vital signs: Vital Signs Temp Pulse 65 03/13/18 14:18 Resp 16 03/13/18 14:18 BP 126/58 03/13/18 14:18 Pulse Ox 97 03/13/18 14:18 Intake & Output 03/12/18 03/13/18 03/13/18 18:59 06:59 18:59 Weight 74.843 kg
== END | disposition home or self-care (01) ==
LOC: PNWHC3 13:54
PROVIDERS: ATTEND Anesthesiology
DX: M96.1 Postlaminectomy syndrome, not elsewhere classified (principal); Z79.891 Long term (current) use of opiate analgesic; Z79.899 Other long term (current) drug therapy
CPT/HCPCS: 99211

== ENCOUNTER 2022-03-02 20:17 | Inpatient (IN) | payer MEDICARE, BC ==
[2022-03-02] MEDS ORDERED: HEPARIN SODIUM 1,000 UN/ML (10ML VL) IV PRN (20:31)
[2022-03-02] MEDS ORDERED: HEPARIN SOD,PORK IN 0.45% NACL 25,000 UNIT in 0.45% NACL 1 250ML.BAG IV SCH (20:45)
[2022-03-02 20:56] LABS: Basophils # (A) 0.1 k/uL (0-0.2); Basophils % (A) 1 %; Eosinophils # (A) 0.3 k/uL (0-0.7); Eosinophils % (A) 4 %; HGB 13.8 gm/dL (11.4-16.0); Lymphocytes # (A) 1.1 k/uL (1.0-4.8); Lymphocytes % (A) 19 %; MCH 31.1 pg (25.0-35.0); MCHC 32.9 g/dL (31.0-37.0); MCV 94.3 fL (80.0-100.0); Mean Platelet Volume 7.4; Monocytes # (A) 0.4 k/uL (0-1.0); Monocytes % (A) 6 %; Neutrophils # (A) 3.9 k/uL (1.3-7.7); Neutrophils % (A) 68 %; Platelet Count 202 k/uL (150-450); RBC 4.45 m/uL (3.80-5.40); RDW 12.5 % (11.5-15.5); WBC 5.7 k/uL (3.8-10.6)
[2022-03-02 21:34] LABS: ALT 15 U/L (4-34); AST 21 U/L (14-36); African American GFR (CKD) >90 (>60 ml/min/1.73 sqM); Albumin 3.9 g/dL (3.5-5.0); Alkaline Phosphatase 95 U/L (38-126); Anion Gap 6 mmol/L; Blood Urea Nitrogen 17 mg/dL (7-17); Calcium 8.7 mg/dL (8.4-10.2); Carbon Dioxide 27 mmol/L (22-30); Chloride 106 mmol/L (98-107); Glucose 95 mg/dL (74-99); Non-African American GFR(CKD) >90 (>60 ml/min/1.73 sqM); Potassium 3.6 mmol/L (3.5-5.1); Sodium 139 mmol/L (137-145); Total Bilirubin 0.4 mg/dL (0.2-1.3); Total Protein 6.3 g/dL (6.3-8.2)
--- NOTE | 2022-03-02 22:08 | ED ---
General Adult HPI - General Chief complaint: Shortness of Breath Stated complaint: nstemi transfer Time Seen by Provider: 03/02/22 20:20 Source: patient, EMS, RN notes reviewed, old records reviewed Mode of arrival: EMS Limitations: no limitations - History of Present Illness Initial comments: Patient is a 71-year-old female who presents emergency Department after being transferred from [facility] for NSTEMI. Presents after feeling short of breath on exertion for the last 4-5 days. Has a history of heart failure, CAD. Has a history of hypertension. At outside facility, had a elevated troponin of 0.1. Patient's cardiologists is located here, Dr. Wen and therefore was accepted as a transfer for cardiac evaluation. Was started on heparin. He was already given 324 mg of aspirin. On my evaluation, patient is feeling unchanged. No acute complaints. Denies any cough, orthopnea, PND. No history of blood clots. Denies ever having chest pain or chest discomfort. Presents for admission. - Related Data Home Medications Medication Instructions Recorded Confirmed ALPRAZolam [Xanax] 0.25 mg PO DAILY PRN 01/01/15 03/13/18 Aspirin 81 mg PO DAILY 01/01/15 03/13/18 Atorvastatin [Lipitor] 40 mg PO Q2D 01/01/15 03/13/18 Butalb/Acetaminophen/Caffeine 1 each PO Q4H PRN 01/01/15 03/13/18 [Fioricet 50-325-40] Calcium Carbonate [Calcium] 600 mg PO DAILY 01/01/15 03/13/18 Levothyroxine Sodium [Synthroid] 88 mcg PO QAM 01/01/15 03/13/18 Metaxalone [Skelaxin] 800 mg PO TID PRN 01/01/15 03/13/18 Spironolactone [Aldactone] 25 mg PO QAM 01/01/15 03/13/18 busPIRone HCL 15 mg PO BID 01/01/15 03/13/18 carvediloL [Coreg] 3.125 mg PO BID 01/01/15 03/13/18 rOPINIRole HCL [Requip] 4 mg PO HS 01/01/15 03/13/18 Atorvastatin [Lipitor] 20 mg PO Q2D 01/24/15 03/13/18 estradioL [Climara] 1 patch TRANSDERM Q7DAYS 01/24/15 03/13/18 HYDROcodone/APAP 5-325MG [[place] 1 tab PO Q6HR PRN 06/08/16 03/13/18 5-325] Omeprazole [PriLOSEC] 20 mg PO AC-BRKFST 07/14/16 03/13/18 amLODIPine [Norvasc] 10 mg PO HS 07/05/17 03/13/18 traZODone HCL [TraZODone HCl] 100 mg PO HS 12/20/17 03/13/18 Cholecalciferol [Vitamin D3] 1,000 unit PO DAILY 01/19/18 03/13/18 Gabapentin [Neurontin] 100 mg PO HS 02/15/18 03/13/18 Allergies Allergy/AdvReac Type Severity Reaction Status Date / Time No Known Allergies Allergy Verified 03/13/18 14:17 Review of Systems ROS Statement: Those systems with pertinent positive or pertinent negative responses have been documented in the HPI. Review of Systems: CONST: Denies fever EYES: Denies blurry vision ENT: Denies nasal congestion C/V: Denies Chest pain RESP: Denies shortness of breath GI: Denies abdominal pain : Denies dysuria SKIN: Denies rash. MSK: Denies joint pain. NEURO: Denies headache ROS Other: All systems not noted in ROS Statement are negative. Past Medical History Past Medical History: GERD/Reflux, Hyperlipidemia, Hypertension, Musculoskeletal Disorder, Osteoarthritis (OA), Thyroid Disorder Additional Past Medical History / Comment(s): HX MIGRAINES, RESTLESS LEG, Frequent Headaches, History of Any Multi-Drug Resistant Organisms: None Reported Past Surgical History: Back Surgery, Bowel Resection, Breast Surgery, Heart Catheterization With Stent, Hysterectomy, Orthopedic Surgery Additional Past Surgical History / Comment(s): RT BREAST BX-BENIGN. BILAT ROTATOR CUFF REPAIR. HINDS RENEA IN BACK. LT KNEE SCOPED. SX FOR DIVERTICULITIS, ULCERS. PAIN PROCEDURES Past Anesthesia/Blood Transfusion Reactions: Previous Problems w/ Anesthesia Additional Past Anesthesia/Blood Transfusion Reaction / Comment(s): PT STATES WITH A PREVIOUS PAIN PROCEDURE SHE TOOK AM MEDS AND HER BLOOD PRESSURE WAS TOO LOW AND SHE DID NOT RECEIVE ANY SEDATION AND SHE SAID IT WAS VERY PAINFUL, STATES SHE DOESNT TAKE HER AM MEDS NOW UNTIL AFTER PROCEDURE Date of Last Stent Placement:: 2010 - Past Family History Father Family Medical History: Myocardial Infarction (DC) Mother Family Medical History: No Reported History General Exam - General Exam Comments Initial Comments: General: Appears in no acute distress. HEAD: Normal with no signs of head trauma. EYES: PERRLA, EOMI, conjunctiva normal, no discharge. ENT: Hearing grossly intact, normal oropharynx. RESPIRATORY: Clear breath sounds bilaterally. No wheezes, rales, or rhonchi. C/V: Regular rate and rhythm. S1 and S2 auscultated, no edema, peripheral pulses 2+ and intact throughout ABD: Abd is soft, nontender, nondistended EXT: Normal range of motion, no obvious deformity SKIN: No rashes or lesions observed on exposed skin. NEURO: Alert and oriented 4. No focal deficits. Limitations: no limitations Course Vital Signs 03/02/22 03/02/22 20:21 20:30 Temperature 99.0 F Pulse Rate 76 Respiratory 18 18 Rate Blood Pressure 174/81 O2 Sat by Pulse 97 Oximetry Medical Decision Making - Medical Decision Making Based on the patient's presentation and physical exam, she is presenting for non-STEMI. However cannot rule out other etiology at this time including something like a pulmonary embolism which was not tested for the outside facility. Screen d-dimer was obtained in addition to repeat labs. She'll be continued on IV heparin. Patient was in agreement this plan. EKG showed no signs of acute ischemia. There is sinus bradycardia. Chest x-ray from the outside facility shows no acute findings.Laboratory studies were remarkable for a a suggested d-dimer which was within normal limits at 0.69. Patient's troponin remains stable, 0.109. At the outside facility, was 0.105. BNP is within normal limits. Remainder of the labs are unremarkable. On reevaluation, patient remains symptom-free. No chest pain. I updated her on the results of her labs. She'll be admitted to the hospital at this time. She was in agreement this plan. Echo was ordered. We will trend the troponin. Cardiology was consulted. Patient's PCP Dr. Lee admits to Dr. Trotter is being covered by [facility]. I spoke with [facility] ANNABELLA Pollard was in agreement with the plan and accepted the patient. Patient is admitted in stable condition. - Lab Data Result diagrams: 03/02/22 20:40 03/02/22 20:40 Lab Results 03/02/22 03/02/22 03/02/22 Range/Units 20:40 20:40 20:40 WBC 5.7 (3.8-10.6) k/uL RBC 4.45 (3.80-5.40) m/uL Hgb 13.8 (11.4-16.0) gm/dL Hct 42.0 (34.0-46.0) % MCV 94.3 (80.0-100.0) fL MCH 31.1 (25.0-35.0) pg MCHC 32.9 (31.0-37.0) g/dL RDW 12.5 (11.5-15.5) % Plt Count 202 (150-450) k/uL MPV 7.4 Neutrophils % 68 % Lymphocytes % 19 % Monocytes % 6 % Eosinophils % 4 % Basophils % 1 % Neutrophils # 3.9 (1.3-7.7) k/uL Lymphocytes # 1.1 (1.0-4.8) k/uL Monocytes # 0.4 (0-1.0) k/uL Eosinophils # 0.3 (0-0.7) k/uL Basophils # 0.1 (0-0.2) k/uL PT 10.5 (9.0-12.0) sec INR 1.0 (<1.2) APTT 53.6 H (22.0-30.0) sec D-Dimer 0.69 H (<0.60) mg/L FEU Sodium 139 (137-145) mmol/L Potassium 3.6 (3.5-5.1) mmol/L Chloride 106 (98-107) mmol/L Carbon Dioxide 27 (22-30) mmol/L Anion Gap 6 mmol/L BUN 17 (7-17) mg/dL Creatinine 0.50 L (0.52-1.04) mg/dL Est GFR (CKD-EPI)AfAm >90 (>60 ml/min/1.73 sqM) Est GFR (CKD-EPI)NonAf >90 (>60 ml/min/1.73 sqM) Glucose 95 (74-99) mg/dL Calcium 8.7 (8.4-10.2) mg/dL Total Bilirubin 0.4 (0.2-1.3) mg/dL AST 21 (14-36) U/L ALT 15 (4-34) U/L Alkaline Phosphatase 95 (38-126) U/L Troponin I (0.000-0.034) ng/mL NT-Pro-B Natriuret Pep pg/mL Total Protein 6.3 (6.3-8.2) g/dL Albumin 3.9 (3.5-5.0) g/dL 03/02/22 03/02/22 Range/Units 20:40 20:40 WBC (3.8-10.6) k/uL RBC (3.80-5.40) m/uL Hgb (11.4-16.0) gm/dL Hct (34.0-46.0) % MCV (80.0-100.0) fL MCH (25.0-35.0) pg MCHC (31.0-37.0) g/dL RDW (11.5-15.5) % Plt Count (150-450) k/uL MPV Neutrophils % % Lymphocytes % % Monocytes % % Eosinophils % % Basophils % % Neutrophils # (1.3-7.7) k/uL Lymphocytes # (1.0-4.8) k/uL Monocytes # (0-1.0) k/uL Eosinophils # (0-0.7) k/uL Basophils # (0-0.2) k/uL PT (9.0-12.0) sec INR (<1.2) APTT (22.0-30.0) sec D-Dimer (<0.60) mg/L FEU Sodium (137-145) mmol/L Potassium (3.5-5.1) mmol/L Chloride (98-107) mmol/L Carbon Dioxide (22-30) mmol/L Anion Gap mmol/L BUN (7-17) mg/dL Creatinine (0.52-1.04) mg/dL Est GFR (CKD-EPI)AfAm (>60 ml/min/1.73 sqM) Est GFR (CKD-EPI)NonAf (>60 ml/min/1.73 sqM) Glucose (74-99) mg/dL Calcium (8.4-10.2) mg/dL Total Bilirubin (0.2-1.3) mg/dL AST (14-36) U/L ALT (4-34) U/L Alkaline Phosphatase (38-126) U/L Troponin I 0.109 H* (0.000-0.034) ng/mL NT-Pro-B Natriuret Pep 690 pg/mL Total Protein (6.3-8.2) g/dL Albumin (3.5-5.0) g/dL - EKG Data -: EKG Interpreted by Me EKG Comments: 12-lead Electrocardiogram Interpretation Note EKG was reviewed and interpreted by myself. 12-lead ECG performed at 2037 is interpreted by me as revealing sinus bradycardia at a rate of 48 beats per karolina te. [place] is normal. [place] interval is 159 ms, QRS duration 76 ms, QTc is 394 ms.. There is slight T-wave inversions in lead V2 and V3. No prior EKGs for comparison. No ST segment elevations or depressions.. R wave progression across the precordium was satisfactory. By my interpretation, this EKG is slightly concerning for acute ischemia. There are T-wave inversions. No EKG for comparison.. Disposition Clinical Impression: NSTEMI (non-ST elevated myocardial infarction), Elevated troponin Disposition: ADMITTED IP TO THIS HOSP Condition: Stable Referrals: Adam Lee MD [Primary Care Provider] - 1-2 days Time of Disposition: 22:25
[2022-03-02 22:13] LABS: Partial Thromboplastin Time 53.6 sec (22.0-30.0); Prothrombin Time 10.5 sec (9.0-12.0)
[2022-03-02] MEDS ORDERED: NALOXONE 0.4 MG/ML 1 ML VIAL IV PRN (22:30)
[2022-03-02] MEDS ORDERED: CYCLOBENZAPRINE 10 MG TAB PO PRN (22:32)
[2022-03-02] MEDS ORDERED: rOPINIRole HCL 4 MG TABLET PO SCH (22:45)
[2022-03-02] MEDS ORDERED: traZODone HCL 50 MG TAB PO SCH (22:45)
[2022-03-03] MEDS: amLODIPine 10 MG TAB PO SCH ×2 (00:03→20:39)
[2022-03-03] MEDS: LEVOTHYROXINE 88 MCG TAB PO SCH (06:47)
[2022-03-03] MEDS: PANTOPRAZOLE 40 MG TABLET PO SCH (06:47)
[2022-03-03] MEDS: carvediloL 3.125 MG TAB PO SCH ×2 (07:53→23:02)
[2022-03-03] MEDS: ASPIRIN 81 MG PO SCH (07:53)
[2022-03-03] MEDS: SPIRONOLACTONE 25 MG TAB PO SCH (07:53)
[2022-03-03] MEDS ORDERED: ATORVASTATIN 80 MG TAB PO STA (09:04)
[2022-03-03] MEDS ORDERED: ALPRAZolam 0.5 MG TAB PO PRN (09:04)
[2022-03-03] MEDS ORDERED: ASPIRIN 325 MG TAB PO STA (09:04)
[2022-03-03] MEDS ORDERED: ALPRAZolam 0.25 MG TAB PO PRN (09:04)
[2022-03-03] MEDS ORDERED: NITROGLYCERIN SL TABS 0.4 MG TAB SUBLINGUAL PRN (09:04)
--- NOTE | 2022-03-03 09:06 | P.CRDCN ---
History of Present Illness History of present illness: This is a 71 year old female with a past medical history of coronary artery disease status post PCI to the mid LAD in 2010, hypertension, dyslipidemia. She follows with Dr. Wen. We have been asked to see in consultation for NSTEMI. Patient presents to the emergency department as a transfer from [facility] for possible NSTEMI. She presented to her PCP office with complaints of exertional shortness of breath for about a week. Initially her symptoms began last week, and over the weekend progressively got worse. 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 However, over the weekend she had increased difficulty doing this because of her shortness of breath. Her PCP office recommended her be evaluated in the ER. Some diaphoresis but she attributes this to the weather. She denies any chest pain, palpitations, lightheadedness, dizziness, syncope or near syncope. She denies any orthopnea or PND. No lower extremity edema. At [facility] had a elevated troponin of 0.105. Transferred to [facility] for cardiology evaluation. DIAGNOSTICS EKG reveals sinus bradycardia, rate 48, nonspecific T-wave abnormalities in anterior leads. No prior EKGs to compare. EKG Linneus was similar findings Telemetry tracings indicate sinus mechanism, no evidence of arrhythmia noted. Chest xray reported at [facility] with no acute findings. Laboratory reviewed, troponin at [facility] 0.105. Labs here revealed troponin 0.109, 0.79, 60% to 71. BNP is 690, d-dimer 0.69, CBC unremarkable, sodium 139, potassium 3.6, BUN 17, serum creatinine 0.5 Most recent echocardiogram in the office 02/2021 revealed EF 55%, moderate mitral aortic regurgitation Cardiac catheterization 07/2016 revealed previously stented LAD wildly patent, RCA and circumflex with no significant disease, 30% mild narrowing proximally RCA, LAD with 30%35% narrowing proximally, EF 55% REVIEW OF SYSTEMS At the time of my exam: CONSTITUTIONAL: Denies fever or chills. CARDIOVASCULAR: Denies chest pain, +shortness of breath, Denies orthopnea, PND or palpitations. RESPIRATORY: Denies cough. GASTROINTESTINAL: Denies abdominal pain, diarrhea, constipation, nausea or vomiting. MUSCULOSKELETAL: Denies myalgias. NEUROLOGIC: Denies numbness, tingling, headacbe or weakness. ENDOCRINE: Denies fatigue, weight change, polydipsia or polyurina. GENITOURINARY: Denies burning, hematuria or urgency with micturation. HEMATOLOGIC: Denies history of anemia or bleeding. PHYSICAL EXAMINATION Blood pressure 132/68, heart rate 50, afebrile, oxygen saturation 94% on room air CONSTITUTIONAL: No apparent distress. HEENT: Head is normocephalic. Pupils are equal, round. Sclerae anicteric. Mucous membranes of the mouth are moist. No JVD. No carotid bruit. CHEST EXAMINATION: Lungs are clear to auscultation. No chest wall tenderness is noted on palpation or with deep breathing. HEART EXAMINATION: Regular rate and rhythm. S1, S2 heard. Systolic murmur noted at apex. No gallops or rub. ABDOMEN: Soft, nontender. Positive bowel sounds. EXTREMITIES: 2+ peripheral pulses, no lower extremity edema and no calf tenderness. NEUROLOGIC EXAMINATION: Patient is awake, alert and oriented x3. ASSESSMENT Exertional shortness of breath, elevated troponin, possible NSTEMI Coronary artery disease status post PCI to the mid LAD in 2010 Hypertension Dyslipidemia PLAN We recommend cardiac catheterization, patient is agreeable. I have discussed the risks, benefits and alternative therapies for the above- mentioned procedure and for both sedation/analgesia as well as necessary blood product administration, if indicated, as they pertain to this patient. The patient has indicated understanding and acceptance of the risks and procedures d iscussed. Questions have been answered appropriately and she is agreeable to move forward with the above-stated procedure. Obtain 2D echocardiogram and doppler study to assess cardiac structure and function. Continue IV Heparin Continue home cardiac medications. Further recommendations based on clinical course Nurse practitioner note has been reviewed by physician. Signing provider agrees with the documented findings, assessment, and plan of care. Past Medical History Past Medical History: Heart Failure, GERD/Reflux, Hyperlipidemia, Hypertension, Musculoskeletal Disorder, Osteoarthritis (OA), Thyroid Disorder Additional Past Medical History / Comment(s): HX MIGRAINES, RESTLESS LEG, Frequent Headaches, History of Any Multi-Drug Resistant Organisms: None Reported Past Surgical History: Back Surgery, Bowel Resection, Breast Surgery, Heart Catheterization With Stent, Hysterectomy, Orthopedic Surgery Additional Past Surgical History / Comment(s): RT BREAST BX-BENIGN. BILAT ROTATOR CUFF REPAIR. HINDS RENEA IN BACK. LT KNEE SCOPED. SX FOR DIVERTICULITIS, ULCERS. PAIN PROCEDURES Past Anesthesia/Blood Transfusion Reactions: No Reported Reaction Additional Past Anesthesia/Blood Transfusion Reaction / Comment(s): . Date of Last Stent Placement:: 2010 Past Psychological History: Anxiety Smoking Status: Never smoker Past Alcohol Use History: Rare Past Drug Use History: None Reported - Past Family History Father Family Medical History: Myocardial Infarction (CT) Mother Family Medical History: Coronary Artery Disease (CAD) Medications and Allergies Home Medications Medication Instructions Recorded Confirmed Type ALPRAZolam [Xanax] 0.25 mg PO DAILY PRN 01/01/15 03/13/18 History Aspirin 81 mg PO DAILY 01/01/15 03/13/18 History Atorvastatin [Lipitor] 40 mg PO Q2D 01/01/15 03/13/18 History Butalb/Acetaminophen/Caffeine 1 each PO Q4H PRN 01/01/15 03/13/18 History [Fioricet 50-325-40] Calcium Carbonate [Calcium] 600 mg PO DAILY 01/01/15 03/13/18 History Levothyroxine Sodium [Synthroid] 88 mcg PO QAM 01/01/15 03/13/18 History Metaxalone [Skelaxin] 800 mg PO TID PRN 01/01/15 03/13/18 History Spironolactone [Aldactone] 25 mg PO QAM 01/01/15 03/13/18 History busPIRone HCL 15 mg PO BID 01/01/15 03/13/18 History carvediloL [Coreg] 3.125 mg PO BID 01/01/15 03/13/18 History rOPINIRole HCL [Requip] 4 mg PO HS 01/01/15 03/13/18 History Atorvastatin [Lipitor] 20 mg PO Q2D 01/24/15 03/13/18 History estradioL [Climara] 1 patch TRANSDERM Q7DAYS 01/24/15 03/13/18 History HYDROcodone/APAP 5-325MG [[place] 1 tab PO Q6HR PRN 06/08/16 03/13/18 History 5-325] Omeprazole [PriLOSEC] 20 mg PO AC-BRKFST 07/14/16 03/13/18 History amLODIPine [Norvasc] 10 mg PO HS 07/05/17 03/13/18 History traZODone HCL [TraZODone HCl] 100 mg PO HS 12/20/17 03/13/18 History Cholecalciferol [Vitamin D3] 1,000 unit PO DAILY 01/19/18 03/13/18 History Gabapentin [Neurontin] 100 mg PO HS 02/15/18 03/13/18 History Allergies Allergy/AdvReac Type Severity Reaction Status Date / Time No Known Allergies Allergy Verified 03/13/18 14:17 Physical Exam Vitals: Vital Signs Temp Pulse Pulse Resp BP BP Pulse Ox 03/03/22 04:00 98.6 F 50 L 18 132/68 94 L 03/02/22 23:31 97.6 F 16 167/72 97 03/02/22 22:30 56 L 21 168/72 95 03/02/22 22:00 55 L 18 158/76 94 L 03/02/22 21:30 52 L 22 158/76 96 03/02/22 21:00 53 L 21 174/81 96 03/02/22 20:30 93 18 174/81 99 03/02/22 20:21 99.0 F 76 18 174/81 97 Intake and Output 03/02/22 03/03/22 03/03/22 22:59 06:59 14:59 Other: # Voids 1 Weight 86.183 kg 86 kg Results 03/02/22 20:40 03/02/22 20:40 Cardiac Enzymes 03/02/22 03/02/22 03/02/22 Range/Units 20:40 20:40 23:48 AST 21 (14-36) U/L Troponin I 0.109 H* 0.089 H* (0.000-0.034) ng/mL 03/03/22 Range/Units 02:46 AST (14-36) U/L Troponin I 0.071 H* (0.000-0.034) ng/mL Coagulation 03/02/22 Range/Units 20:40 PT 10.5 (9.0-12.0) sec APTT 53.6 H (22.0-30.0) sec CBC 03/02/22 Range/Units 20:40 WBC 5.7 (3.8-10.6) k/uL RBC 4.45 (3.80-5.40) m/uL Hgb 13.8 (11.4-16.0) gm/dL Hct 42.0 (34.0-46.0) % Plt Count 202 (150-450) k/uL Comprehensive Metabolic Panel 03/02/22 Range/Units 20:40 Sodium 139 (137-145) mmol/L Potassium 3.6 (3.5-5.1) mmol/L Chloride 106 (98-107) mmol/L Carbon Dioxide 27 (22-30) mmol/L BUN 17 (7-17) mg/dL Creatinine 0.50 L (0.52-1.04) mg/dL Glucose 95 (74-99) mg/dL Calcium 8.7 (8.4-10.2) mg/dL AST 21 (14-36) U/L ALT 15 (4-34) U/L Alkaline Phosphatase 95 (38-126) U/L Total Protein 6.3 (6.3-8.2) g/dL Albumin 3.9 (3.5-5.0) g/dL Current Medications Generic Name Dose Route Start Last Admin Trade Name Freq PRN Reason Stop Dose Admin Amlodipine Besylate 10 mg 03/02/22 23:51 03/03/22 00:03 Amlodipine 10 Mg Tab PO 10 mg HS CLOTILDE Administration Aspirin 81 mg 03/03/22 09:00 Aspirin 81 Mg PO DAILY [facility] Carvedilol 3.125 mg 03/03/22 09:00 Carvedilol 3.125 Mg Tab PO BID CLOTILDE Cyclobenzaprine HCl 10 mg 03/02/22 22:32 Cyclobenzaprine 10 Mg Tab PO TID PRN Muscle Spasm Heparin Sodium (Porcine) 0 unit 03/02/22 20:31 Heparin Sodium 1,000 Un/Ml (10ml Vl) IV PER PROTOCOL PRN Low PTT Protocol Heparin Sodium/Sodium Chloride 250 mls @ 10 mls/hr 03/02/22 20:45 03/03/22 00:07 25,000 unit/ Sodium Chloride IV 11.6032 units/kg/hr .Q24H CLOTILDE 10 mls/hr Administration Protocol 11.6032 UNITS/KG/HR Levothyroxine Sodium 88 mcg 03/03/22 06:30 03/03/22 06:47 Levothyroxine 88 Mcg Tab PO 88 mcg DAILY@0630 CLOTILDE Administration Naloxone HCl 0.2 mg 03/02/22 22:30 Naloxone 0.4 Mg/Ml 1 Ml Vial IV Q2M PRN Opioid Reversal Pantoprazole Sodium 40 mg 03/03/22 07:30 03/03/22 06:47 Pantoprazole 40 Mg Tablet PO 40 mg AC-BRKFST CLOTILDE Administration Ropinirole HCl 4 mg 03/02/22 22:45 03/03/22 00:02 Ropinirole Hcl 4 Mg Tablet PO 4 mg HS CLOTILDE Administration Spironolactone 25 mg 03/03/22 09:00 Spironolactone 25 Mg Tab PO QAM CLOTILDE Trazodone HCl 100 mg 03/02/22 22:45 03/03/22 00:02 Trazodone Hcl 50 Mg Tab PO 100 mg HS CLOTILDE Administration Intake and Output 03/02/22 03/03/22 03/03/22 22:59 06:59 14:59 Other: # Voids 1 Weight 86.183 kg 86 kg 03/02/22 20:40 03/02/22 20:40
[2022-03-03 09:08] LABS: Basophils % (A) 1 %; Eosinophils # (A) 0.2 k/uL (0-0.7); Eosinophils % (A) 5 %; HCT 42.3 % (34.0-46.0); HGB 13.8 gm/dL (11.4-16.0); Lymphocytes # (A) 1.5 k/uL (1.0-4.8); Lymphocytes % (A) 37 %; MCH 31.4 pg (25.0-35.0); MCHC 32.6 g/dL (31.0-37.0); MCV 96.3 fL (80.0-100.0); Mean Platelet Volume 7.9; Monocytes # (A) 0.3 k/uL (0-1.0); Monocytes % (A) 8 %; Neutrophils % (A) 48 %; Platelet Count 171 k/uL (150-450); RDW 12.6 % (11.5-15.5); WBC 4.2 k/uL (3.8-10.6)
[2022-03-03 09:26] LABS: Partial Thromboplastin Time 44.8 sec (22.0-30.0); Prothrombin Time 10.7 sec (9.0-12.0)
[2022-03-03] MEDS: SODIUM CHLORIDE 0.9% 1,000 ML in EMPTY BAG 1 BAG IV SCH (09:29)
[2022-03-03 09:40] LABS: African American GFR (CKD) >90 (>60 ml/min/1.73 sqM); Anion Gap 6 mmol/L; Blood Urea Nitrogen 16 mg/dL (7-17); Calcium 8.4 mg/dL (8.4-10.2); Carbon Dioxide 25 mmol/L (22-30); Chloride 107 mmol/L (98-107); Glucose 80 mg/dL (74-99); Non-African American GFR(CKD) >90 (>60 ml/min/1.73 sqM); Potassium 3.5 mmol/L (3.5-5.1); Sodium 138 mmol/L (137-145)
--- NOTE | 2022-03-03 12:04 | CA ---
Transthoracic Echo Report Name: Libertad Holbrook Age: 71 Gender: F : 1950 Exam Date: 03/03/2022 08:48 Exam Location: [place] [facility] Ht (in): 62 Wt (lb): 189 Ordering Physician: Markus Foster MD Attending/Referring Phys: Shane Wen MD ([id number]) [employer] Consultant Shellie Mcelroy RDCS Procedure CPT: Indications: nstemi Cardiac Hx: Technical Quality: Good Contrast 1: N/A Total Dose (mL): Contrast 2: Total Dose (mL): MEASUREMENTS (Male / Female) Normal Values 2D ECHO LV Diastolic Diameter PLAX 5.4 cm 4.2 - 5.9 / 3.9 - 5.3 cm LV Systolic Diameter PLAX 3.1 cm IVS Diastolic Thickness 0.8 cm 0.6 - 1.0 / 0.6 - 0.9 cm LVPW Diastolic Thickness 1.2 cm 0.6 - 1.0 / 0.6 - 0.9 cm LV Relative Wall Thickness 0.4 RV Internal Dim ED PLAX 3.1 cm LA Systolic Diameter LX 4.6 cm 3.0 - 4.0 / 2.7 - 3.8 cm LA Volume 61.9 cm??? 18 - 58 / 22 - 52 cm??? M-MODE Aortic Root Diameter MM 2.7 cm LA Systolic Diameter MM 4.1 cm LA Ao Ratio MM 1.5 MV E Point Septal Separation 1.0 cm AV Cusp Separation MM 1.9 cm DOPPLER AV Peak Velocity 167.1 cm/s AV Peak Gradient 11.2 mmHg AI Peak Velocity 397.2 cm/s AI Peak Gradient 63.1 mmHg AI Pressure Half Time 714.2 ms MV Area PHT 4.5 cm??? Mitral E Point Velocity 53.0 cm/s Mitral A Point Velocity 26.8 cm/s Mitral E to A Ratio 2.0 MV Deceleration Time 169.6 ms MV E' Velocity 6.7 cm/s Mitral E to MV E' Ratio 7.9 FINDINGS Left Ventricle Normal Left ventricular size, wall thickness, systolic function with no obvious regional wall motion abnormalities.left ventricular ejection fraction is estimated at 50-55%. Right Ventricle Normal right ventricular size and function. Right ventricular systolic pressure within normal limits. Right Atrium Normal right atrial size. Left Atrium Moderately increased left atrial diameter. Mildly increased left atrial volume. Mitral Valve Structurally normal mitral valve. Trace to mild mitral regurgitation. Aortic Valve Trileaflet aortic valve. Mild aortic regurgitation. Tricuspid Valve Structurally normal tricuspid valve. Mild tricuspid regurgitation. Pulmonic Valve Structurally normal pulmonic valve. Pericardium Normal pericardium. Aorta Normal size aortic root and proximal ascending aorta. CONCLUSIONS Normal LV systolic function and left atrial enlargement mild aortic regurgitation Previewed by: Dr. Gil Gutierrez MD (Electronically Signed) Final Date: 03 March 2022 12:03
[2022-03-03] MEDS ORDERED: ACETAMINOPHEN TAB 325 MG TAB PO PRN (12:06)
[2022-03-03] MEDS ORDERED: oxyCODONE-APAP 5-325MG 1 EACH TAB PO PRN (13:48)
[2022-03-03] MEDS ORDERED: BUTA/APAP/CAF/COD 50-325-40-30 CAP PO PRN (13:48)
[2022-03-03] MEDS ORDERED: VERAPAMIL 2.5 MG/ML 2 ML AMP ONE (13:49)
[2022-03-03] MEDS ORDERED: HEPARIN SODIUM 1,000 UN/ML (10ML VL) ONE (13:50)
[2022-03-03] MEDS ORDERED: ASPIRIN 81 MG ONE (14:14)
[2022-03-03] MEDS ORDERED: ASPIRIN 81 MG PO ONE (14:23)
[2022-03-03] MEDS ORDERED: IV FLUID CONTINUATION 1,000 ML IV ONE (14:24)
[2022-03-03] MEDS ORDERED: MIDAZOLAM 2 MG/2 ML VIAL IV ONE (14:39)
[2022-03-03] MEDS ORDERED: LIDOCAINE 1% INJ 10MG/ML (5 ML VIAL-PF) SQ ONE (14:40)
[2022-03-03] MEDS: HEPARIN SODIUM 1,000 UN/ML (10ML VL) IV ONE ×2 (14:44→14:58)
[2022-03-03] MEDS: VERAPAMIL SYRINGE (5 MG/10 ML) INTRAARTER ONE ×2 (14:45→14:59)
[2022-03-03] MEDS: NITROGLYCERIN 1000MCG/10ML SYRINGE INTRAARTER ONE ×2 (15:00→15:31)
[2022-03-03] MEDS ORDERED: IOPAMIDOL-370 100ML BTL INJ ONE ×2 (15:23→16:04)
[2022-03-03] MEDS ORDERED: CLOPIDOGREL 75 MG TAB PO ONE (15:31)
[2022-03-03] MEDS ORDERED: CLOPIDOGREL 75 MG TAB ONE (15:33)
[2022-03-03] MEDS ORDERED: RX INFO: IV CONTRAST WAS GIVEN 1 EACH MISC MISCELLANE PRN (15:41)
[2022-03-03] MEDS ORDERED: MAG HYDROX/AL HYDROX/SIMETH 30 ML CUP PO PRN (15:41)
[2022-03-03] MEDS ORDERED: ATROPINE SULFATE 0.1 MG/ML 10ML SYRINGE IV PRN (15:41)
--- NOTE | 2022-03-03 16:28 | HP ---
HISTORY AND PHYSICAL DATE OF SERVICE: 03/03/2022 CHIEF COMPLAINT: Shortness of breath. HISTORY OF PRESENT ILLNESS: This 71-year-old woman with a past medical history of hypertension, hyperlipidemia, CHF being followed by Dr. Lee in the outpatient setting, was complaining of shortness of breath for the past several days. The patient was in the primary hospital and subsequently went to [facility] and transferred to [facility]. Troponins found to be elevated. The patient had features of non ST segment elevation acute myocardial infarction. The patient is scheduled for cardiac catheterization by Cardiology. There is no history of fever, rigors or chills. No chest pain is reported. PAST MEDICAL HISTORY: Reviewed and includes CHF, hypertension, hyperlipidemia. MEDICATIONS: Also reviewed and include trazodone. Dose and the rest of medications reviewed. ALLERGIES: None. FAMILY HISTORY: History of coronary artery disease. SOCIAL HISTORY: No history of smoking. REVIEW OF SYSTEMS: 14-point review of systems is negative except as mentioned earlier. PHYSICAL EXAMINATION: Pulse 49, blood pressure 140/60. Respirations 14. HEENT: Conjunctivae normal. NECK: No JVD. CARDIOVASCULAR: S1, S2 muffled. . No murmurs or thrills. RESPIRATION: Breath sounds diminished in the bases. No rhonchi. No crackles. ABDOMEN: Soft, nontender. No mass. LEGS are no edema. No swelling. NERVOUS SYSTEM: No focal deficits. SKIN: No ulcer, rashes or bleeding. JOINTS: No active deforming arthropathy. LABS: CBC within normal limits. BMP noted. Troponin 0.17. ASSESSMENT: 1. Acute dtl-[id number]-elevation myocardial infarction. 2. History of congestive heart failure. 3. Hypertension. 4. Hyperlipidemia. 5. Multiple medical issues. RECOMMENDATIONS AND DISCUSSION: This 71-year-old woman who presented with multiple complex medical issues, we will monitor the patient closely. Unstable angina protocol. Dual antiplatelet treatment. Cardiology consultation. Cardiac catheterization. Resume the home medications. Prognosis guarded because of multiple complex medical issues. Further recommendations to follow. MMODL / IJN: [id number] /
[2022-03-03] MEDS: MEMANTINE 10 MG TAB PO SCH (20:40)
[2022-03-03] MEDS: busPIRone HCl 10 MG TAB PO SCH (20:40)
--- NOTE | 2022-03-03 20:58 | CC ---
CARDIAC CATHETERIZATION REPORT DATE OF SERVICE: 03/02/2022. PROCEDURE: 1. Left heart catheterization and coronary angiography. 2. Percutaneous transluminal coronary angioplasty and stenting of proximal circumflex coronary artery with a drug-eluting stent. PERFORMED BY: Dr. Halle Wen. Moderate conscious sedation time was 57 minutes. Patient was administered Versed. Oxygen saturation, hemodynamics and EKG were monitored closely. CLINICAL INFORMATION: Mrs. Libertad Holbrook is a 71-year-old lady with a known history of CAD and previous PCI of LAD in 2010, and a cardiac catheterization in 2016 revealed that the LAD was patent, and no other significant disease was noted. She has a dominant RCA. She came into the hospital with chest pain suggestive of angina, had a mild troponin elevation, was advised cardiac catheterization after due discussion regarding risks, benefits and options. PROCEDURE NOTE: Under local anesthesia and strict aseptic precautions, a 6-Tamazight introducer was placed in the right radial artery. There was a lot of spasm in the radial artery. I had to use a long Glidewire. Coronary angiography was performed using a JL3.5 and JR4 catheters and I also checked LV pressures but did not perform an LV-gram. Following this, I noted that she had a significant lesion in the circumflex and LAD was widely patent. The dominant RCA was disease-free. I performed PCI of the circumflex in the same setting and following that, the sheath was taken out and TR band applied as per protocol with saturation in the fingers of the right hand of 95%. The patient received 600 mg of Plavix. She received about 6250 units of intravenous heparin and ACT was 290. Patient tolerated the procedure well without complications. CARDIAC CATHETERIZATION FINDINGS: The left ventricular end-diastolic pressure was about 10 to 11 mmHg without any gradient across aortic valve. CORONARY ANGIOGRAPHY FINDINGS: RIGHT CORONARY ARTERY: This is a dominant vessel. No significant disease. Minor irregularities. Mild calcification distally. It bifurcates into large PDA and PLV, both of which supply a sizable amount of myocardium. No significant disease in the dominant RCA. LEFT MAIN CORONARY ARTERY: Long patent vessel, free of significant disease. Bifurcates into LAD and circumflex. LEFT ANTERIOR DESCENDING CORONARY ARTERY: Good-caliber vessel that was stented in the past in the mid portion. Widely patent with brisk flow. Distally the vessel becomes smaller. It gives off septal and diagonal branches which have minor irregularities. No significant disease in the LAD system, and the stented segment is widely patent. LEFT POSTERIOR CIRCUMFLEX CORONARY ARTERY: Nondominant vessel. Good-caliber vessel. Proximal mid section has an 80% to 85% eccentric lesion with some haziness. This is the culprit lesion. FINAL IMPRESSION: This patient has normal filling pressures, no gradient. Right-dominant system. Widely patent LAD at the site of previous stenting. RCA which is dominant has no significant disease. Nondominant circumflex now has an 80% to 90% proximal/mid narrowing with haziness suggestive of being the culprit lesion. This vessel was completely normal in 2016. RECOMMENDATIONS: I recommended PCI of circumflex and perform this in the same setting. PERCUTANEOUS CORONARY INTERVENTION PROCEDURE DETAILS: Initially I used a JL3.5 guide catheter, but I had difficulty getting a good seating. I switched over to an XB left catheter of 3.0, curved. With this I was able to get good seating. A run-through wire was used to cross the lesion. A 3.0 caliber 12 mm NC Trek balloon was used to pre-dilate the lesion. I then deployed a 23 mm long 3.5 caliber Xience stent at 13 atmospheres. Patient had mild chest discomfort and mild inferior wall ST elevation and precordial ST depression. Excellent angiographic result was achieved without complication. The sheath was taken out and TR band applied as per protocol. Patient's ACT was 290 and she received 600 mg of Plavix. The details and results were discussed with the patient, but there was no family available. Excellent angiographic result without complication was achieved. I expect the patient to be discharged tomorrow. MMODL / IJN: [id number] /
[2022-03-03] MEDS ORDERED: ATORVASTATIN 40 MG TAB PO SCH (21:00)
[2022-03-03] MEDS ORDERED: PRAMIPEXOLE 1 MG TAB PO SCH (21:00)
[2022-03-03] MEDS ORDERED: TRAZODONE HCL 300 MG PO SCH (21:00)
[2022-03-03] MEDS ORDERED: traZODone HCL 100 MG TAB PO SCH (21:00)
[2022-03-03] MEDS ORDERED: amLODIPine 10 MG TAB PO SCH (21:00)
[2022-03-04] MEDS: SODIUM CHLORIDE 0.9% 1,000 ML in EMPTY BAG 1 BAG IV SCH (01:59)
[2022-03-04] MEDS: LEVOTHYROXINE 88 MCG TAB PO SCH (06:08)
[2022-03-04] MEDS: PANTOPRAZOLE 40 MG TABLET PO SCH (06:08)
[2022-03-04] MEDS ORDERED: HEPARIN SODIUM,PORCINE 10,000 UNIT in SODIUM CHLORIDE 0.9% 1,000 ML IRRIGATION PRN (07:00)
[2022-03-04] MEDS ORDERED: HEPARIN SODIUM,PORCINE 2,500 UNIT in SODIUM CHLORIDE 0.9% 250 ML IRRIGATION PRN (07:00)
[2022-03-04] MEDS: ASPIRIN 81 MG PO SCH (08:45)
[2022-03-04] MEDS: MEMANTINE 10 MG TAB PO SCH (08:45)
[2022-03-04] MEDS: busPIRone HCl 10 MG TAB PO SCH (08:45)
[2022-03-04] MEDS: carvediloL 3.125 MG TAB PO SCH (08:45)
[2022-03-04] MEDS: SPIRONOLACTONE 25 MG TAB PO SCH (08:45)
[2022-03-04] MEDS ORDERED: EZETIMIBE 10 MG TAB PO SCH (09:00)
[2022-03-04] MEDS ORDERED: LOSARTAN 25 MG TAB PO SCH (09:00)
[2022-03-04] MEDS ORDERED: CLOPIDOGREL 75 MG TAB PO SCH (09:00)
[2022-03-04 09:33] LABS: Basophils % (A) 1 %; Eosinophils # (A) 0.1 k/uL (0-0.7); Eosinophils % (A) 2 %; HCT 41.3 % (34.0-46.0); HGB 13.3 gm/dL (11.4-16.0); Lymphocytes # (A) 0.6 k/uL (1.0-4.8); Lymphocytes % (A) 12 %; MCH 31.5 pg (25.0-35.0); MCHC 32.3 g/dL (31.0-37.0); MCV 97.3 fL (80.0-100.0); Mean Platelet Volume 7.4; Monocytes # (A) 0.3 k/uL (0-1.0); Monocytes % (A) 7 %; Neutrophils # (A) 4.1 k/uL (1.3-7.7); Neutrophils % (A) 77 %; Platelet Count 171 k/uL (150-450); RBC 4.24 m/uL (3.80-5.40); RDW 12.7 % (11.5-15.5); WBC 5.3 k/uL (3.8-10.6)
[2022-03-04 09:44] LABS: African American GFR (CKD) >90 (>60 ml/min/1.73 sqM); Anion Gap 2 mmol/L; Blood Urea Nitrogen 9 mg/dL (7-17); Calcium 8.3 mg/dL (8.4-10.2); Carbon Dioxide 30 mmol/L (22-30); Chloride 105 mmol/L (98-107); Glucose 112 mg/dL (74-99); Non-African American GFR(CKD) >90 (>60 ml/min/1.73 sqM); Potassium 4.2 mmol/L (3.5-5.1); Sodium 137 mmol/L (137-145)
--- NOTE | 2022-03-04 10:00 | P.PN ---
Subjective This is a 71 year old female with a past medical history of coronary artery disease status post PCI to the mid LAD in 2010, hypertension, dyslipidemia. She follows with Dr. Wen. We have been asked to see in consultation for NSTEMI. Patient presents to the emergency department as a transfer from [facility] for possible NSTEMI. She presented to her PCP office with complaints of exertional shortness of breath for about a week. She was found to have elevated troponin. EKG reveals sinus bradycardia, nonspecific T-wave abnormalities in anterior leads. Cardiac catheterization was recommended 03/02/2022 Patient underwent cardiac catheterization with Dr. Wen which revealed 8090% proximal/mid narrowing within the left circumflex. Widely patent stented LAD. RCA with no significant disease. Patient underwent PCI of the circumflex Patient seen and examined at bedside, no acute distress. She denies any chest pain or shortness of breath. She overall is feeling well. With no complaints. Her vital signs are stable. Echocardiogram revealed EF of 5055% She is currently maintained on dual antiplatelet therapy with aspirin and P lavix, amlodipine 10 mg daily, atorvastatin 40 mg daily, carvedilol 3.125 mg twice a day, losartan 25 mg daily, spironolactone 25 mg daily PHYSICAL EXAMINATION Vitals reviewed CONSTITUTIONAL: No apparent distress. HEENT: Neck Supple. No JVD. No carotid bruit. CHEST EXAMINATION: Lungs are clear to auscultation. No chest wall tenderness is noted on palpation or with deep breathing. HEART EXAMINATION: Regular rate and rhythm. S1, S2 heard. Systolic murmur noted at apex. No gallops or rub. ABDOMEN: Soft, nontender. Positive bowel sounds. EXTREMITIES: 2+ peripheral pulses, no lower extremity edema and no calf tenderness. NEUROLOGIC EXAMINATION: Patient is awake, alert and oriented x3. ASSESSMENT NSTEMI s/p PCI to circumflex on 03/02 Coronary artery disease status post PCI to the mid LAD in 2010 Hypertension Dyslipidemia PLAN Continue dual antiplatelet therapy with aspirin and plavix for at least 12 months Continue statin and Zetia Continue Losartan, carvedilol and spironolactone From a cardiology perspective patient is stable to be discharged home, follow up with Dr. Wen outpatient, patient with an appointment on 03/12. Nurse practitioner note has been reviewed by physician. Signing provider agrees with the documented findings, assessment, and plan of care. Objective - Vital Signs Vital signs: Vital Signs Temp 97.7 F 03/04/22 03:53 Pulse 52 L 03/04/22 03:53 Resp 18 03/04/22 03:53 BP 124/64 03/04/22 03:53 Pulse Ox 97 03/04/22 03:53 FiO2 Intake & Output 03/03/22 03/04/22 03/04/22 18:59 06:59 18:59 Intake Total 300.5 240 Balance 300.5 240 Intake: IV 200 Intake, IV Titration 100.5 Amount Heparin Sod,Pork in 0.45% 100.5 NaCl 25,000 unit In 0.45 % NaCl 1 250ml.bag @ 11. 6032 UNITS/KG/HR 10 mls/ hr IV .Q24H [facility] Rx#: [id number] Oral 240 Other: # Voids 2 1 - Labs CBC & Chem 7: 03/04/22 08:52 03/04/22 08:52 Labs: Abnormal Lab Results - Last 24 Hours (Table) 03/04/22 03/04/22 Range/Units 08:52 08:52 Lymphocytes # 0.6 L (1.0-4.8) k/uL Glucose 112 H (74-99) mg/dL Calcium 8.3 L (8.4-10.2) mg/dL
[2022-03-04 11:15] VITALS: PULSE 60; RESP 16
[2022-03-04 11:48] VITALS: BMI 34.7
[2022-03-04 14:15] VITALS: BP 119/56
[2022-03-04 14:59] VITALS: TEMP 97
--- NOTE | 2022-03-05 07:31 | CDI ---
Documentation Clarification Form Date: 03/04/2022 02:02:29 PM From: Sparkle Hoskins RN CCDS Admit Date: 03/02/2022 10:30:00 PM Patient Name: Libertad Holbrook Visit Number: [id number] Discharge Date: ATTENTION: The Clinical Documentation Specialists (CDI) and [facility] Coding Staff appreciate your assistance in clarifying documentation. Please respond to the clarification below the line at the bottom and electronically sign. The CDI & [facility] Coding staff will review the response and follow-up if needed. Please note: Queries are made part of the Legal Health Record. If you have any questions, please contact the author of this message via ITS. Dr. Amanda Triplett Your patient has the documented diagnosis of unspecified CHF 03/03, H&P. Additional information regarding the type, acuity of CHF is requested. History/Risk Factors: 71-year-old female presents to the with shortness of breath for the past several days. Troponins elevated at [facility] and sent to [facility]. Medical history: CHF, HTN and HTN. 03/03, H&P. Clinical Indicators: VS/Pulse OX: 03/02 B/P 174/81; HR 76; Temp 99.0 F Oral; RR 18; SpO2 97% room air BNP: 03/02 690 Echocardiogram Results: 03/03 Normal LV systolic function and left atrial enlargement mild aortic regurgitation. EF 50-55% Treatment: 03/03 Coreg 3.125mg PO BID; 03/03 Aldactone 25mg PO QAM28 In your professional opinion, can you please clarify the acuity and type of CHF if known? [ ] Chronic Diastolic Heart Failure (preserved EF) [ ] Other, please specify [ ] Unable to determine (Template Last Revised: October 2020) Chronic Diastolic Heart Failure (preserved EF) MTDD
--- NOTE | 2022-03-07 05:10 | P.DS ---
Providers Date of admission: 03/02/22 22:30 Expected date of discharge: 03/04/22 Attending physician: Amanda Triplett Consults: 03/02/22 22:30 Consult Physician Routine Consulting Provider: Butch Do Consult Reason/Comments: NSTEMI, padilla patient Do you want consulting provider notified?: Yes, Notify in am 03/03/22 15:41 Consult Physician Routine Consulting Provider: Cardiology Hi Consult Reason/Comments: Post Interventional Patient Do you want consulting provider notified?: Already Contacted Primary care physician: Adam Lee [facility] Course: Final Diagnosis acute NSTEMI Chronic diastolic heart failure with preserved EF cardiac catheterization status post PCI stenting to circumflex hypertension hyperlipidemia Multiple medical issues Discharge disposition Patient is being discharged in a stable condition with guarded prognosis to home. Patient will follow-up with Dr. Lee in the outpatient setting upon discharge. Patient is to follow up with Dr. Padilla in one week. Total time taken is greater than 35 minutes. Hospital course This is a 71-year-old female who was admitted with shortness of breath and sent here from [facility] for further cardiac evaluation. Patient underwent cardiac catheterization with PCI stenting to the circumflex. Troponins were elevated. Patient is to follow up with Dr. Padilla in one week. Patient reporting to feeling much better and would like to go home. Currently no reports of chest pain, shortness of breath, or palpitations. Patient is afebrile. No reports of nausea or vomiting and patient is tolerating diet. Patient will be discharged home today. guarded prognosis. On exam vital signs are stable. Cardio S1, S2 are muffled. Respiratory system shows diminished breath sounds at the bases with no wheezing or rhonchi noted. Abdomen is soft and nontender. Nervous system shows no focal deficits. Please refer to medication reconciliation sheet for a list of medications. The impression and plan of care has been dictated by Helen Ortez, Nurse Practitioner as directed. Dr. Uziel MD I have performed a history and examination and MDM of this patient, discussed the same with the dictator, and agree with the dictator's assessment and plan as written ,documented as a scribe. Based on total visit time, I have performed more than 50% of the visit. Patient Condition at Discharge: Stable Plan - Discharge Summary Discharge Rx Participant: No New Discharge Prescriptions: New Atorvastatin [Lipitor] 40 mg PO HS 90 Days #90 tab Clopidogrel [Plavix] 75 mg PO DAILY #90 tab Losartan [Cozaar] 25 mg PO DAILY #90 tab Nitroglycerin Sl Tabs [Nitrostat] 0.4 mg SUBLINGUAL Q5M PRN #25 tab PRN Reason: Chest Pain Acetaminophen Tab [Tylenol] 650 mg PO Q6HR PRN tab PRN Reason: Fever And/ Or Pain Continue Aspirin 81 mg PO DAILY Levothyroxine Sodium [Synthroid] 88 mcg PO DAILY Metaxalone [Skelaxin] 800 mg PO Q8H PRN PRN Reason: Muscle Spasm Spironolactone [Aldactone] 25 mg PO DAILY estradioL [Climara 0.025 MG] 1 patch TRANSDERM SARMIENTO Omeprazole [PriLOSEC] 20 mg PO AC-BRKT amLODIPine [Norvasc] 10 mg PO DAILY Butalbit/Acetamin/Caff/Codeine [Fioricet-Cod 17-395-12-30 Cap] 1 cap PO Q8H PRN PRN Reason: Migraine Headache Pramipexole [Mirapex] 2 mg PO HS traZODone HCL 300 mg PO HS carvediloL [Coreg] 3.125 mg PO BID busPIRone HCL [Buspar] 30 mg PO BID Celecoxib [CeleBREX] 200 mg PO DAILY Ezetimibe [Zetia] 10 mg PO DAILY Memantine [Namenda] 10 mg PO BID oxyCODONE-APAP 5-325MG [Percocet 5-325 mg] 1 tab PO DAILY PRN PRN Reason: Pain Discharge Medication List Aspirin 81 mg PO DAILY 01/01/15 [History] Levothyroxine Sodium [Synthroid] 88 mcg PO DAILY 01/01/15 [History] Metaxalone [Skelaxin] 800 mg PO Q8H PRN 01/01/15 [History] Spironolactone [Aldactone] 25 mg PO DAILY 01/01/15 [History] estradioL [Climara 0.025 MG] 1 patch TRANSDERM SARMIENTO 01/24/15 [History] Omeprazole [PriLOSEC] 20 mg PO AC-BRKFST 07/14/16 [History] Butalbit/Acetamin/Caff/Codeine [Fioricet-Cod 31-557-67-30 Cap] 1 cap PO Q8H PRN 03/03/22 [History] Celecoxib [CeleBREX] 200 mg PO DAILY 03/03/22 [History] Ezetimibe [Zetia] 10 mg PO DAILY 03/03/22 [History] Memantine [Namenda] 10 mg PO BID 03/03/22 [History] Pramipexole [Mirapex] 2 mg PO HS 03/03/22 [History] amLODIPine [Norvasc] 10 mg PO DAILY 03/03/22 [History] busPIRone HCL [Buspar] 30 mg PO BID 03/03/22 [History] carvediloL [Coreg] 3.125 mg PO BID 03/03/22 [History] oxyCODONE-APAP 5-325MG [Percocet 5-325 mg] 1 tab PO DAILY PRN 03/03/22 [History] traZODone HCL 300 mg PO HS 03/03/22 [History] Acetaminophen Tab [Tylenol] 650 mg PO Q6HR PRN tab 03/04/22 [Rx] Atorvastatin [Lipitor] 40 mg PO HS 90 Days #90 tab 03/04/22 [Rx] Clopidogrel [Plavix] 75 mg PO DAILY #90 tab 03/04/22 [Rx] Losartan [Cozaar] 25 mg PO DAILY #90 tab 03/04/22 [Rx] Nitroglycerin Sl Tabs [Nitrostat] 0.4 mg SUBLINGUAL Q5M PRN #25 tab 03/04/22 [Rx] Follow up Appointment(s)/Referral(s): Shane Padilla MD [STAFF PHYSICIAN] - 03/12/22 10:45 am Adam Lee MD [Primary Care Provider] - 1-2 days (Office is closed, please call to schedule follow up. ) Patient Instructions/Handouts: Heart Catheterization (DC), After Radial Heart Catheterization (GEN) Discharge Disposition: HOME SELF-CARE
== END 2022-03-04 15:49 | disposition home or self-care (01) | DRG 247 ==
LOC: EC 20:17 → 3SCARD 22:30
PROVIDERS: ADMIT Hospitalist; ATTEND Hospitalist
PROC: B2111ZZ Fluoroscopy of Multiple Coronary Arteries using Low Osmolar Contrast (ICD-10-PCS; 2022-03-03)
PROC: 027034Z Dilation of Coronary Artery, One Artery with Drug-eluting Intraluminal Device, Percutaneous Approach (ICD-10-PCS; principal; 2022-03-03 10:50)
PROC: 4A023N7 Measurement of Cardiac Sampling and Pressure, Left Heart, Percutaneous Approach (ICD-10-PCS; 2022-03-03 10:50)
DX: I21.4 Non-ST elevation (NSTEMI) myocardial infarction (principal); I50.32 Chronic diastolic (congestive) heart failure; I25.10 Atherosclerotic heart disease of native coronary artery without angina pectoris; G43.909 Migraine, unspecified, not intractable, without status migrainosus; E78.5 Hyperlipidemia, unspecified; I08.3 Combined rheumatic disorders of mitral, aortic and tricuspid valves; R00.1 Bradycardia, unspecified; G25.81 Restless legs syndrome; I11.0 Hypertensive heart disease with heart failure; I25.2 Old myocardial infarction; Z79.82 Long term (current) use of aspirin; Z79.890 Hormone replacement therapy; Z79.899 Other long term (current) drug therapy; Z82.49 Family history of ischemic heart disease and other diseases of the circulatory system; Z90.710 Acquired absence of both cervix and uterus
CPT/HCPCS: 36415; 80048; 80053; 83880; 84484; 85025; 85379; 85610; 85730; 93005; 93306; 93458; 99285

== ENCOUNTER 2023-01-18 08:49 | Day surgery (SDC) | payer MEDICARE, BC ==
[2023-01-14 12:16] VITALS: BMI 32.8
[~2023-01-18 08:49] MED LIST changes: +ALPRAZolam 0.25 MG TAB PO PRN; +ALPRAZolam 0.5 MG TAB PO PRN; +ASPIRIN 325 MG TAB PO STA; +ATORVASTATIN 80 MG TAB PO STA; +HEPARIN SODIUM,PORCINE 10,000 UNIT in SODIUM CHLORIDE 0.9% 1,000 ML IRRIGATION PRN; +HEPARIN SODIUM,PORCINE 2,500 UNIT in SODIUM CHLORIDE 0.9% 250 ML IRRIGATION PRN; -LACTATED RINGERS 1,000 ML IV SCH; +NITROGLYCERIN SL TABS 0.4 MG TAB SUBLINGUAL PRN; +SODIUM CHLORIDE 0.9% 1,000 ML in EMPTY BAG 1 BAG IV SCH
[2023-01-18 09:13] VITALS: TEMP 97.8
[2023-01-18 09:26] LABS: Basophils % (A) 1 %; Eosinophils # (A) 0.2 k/uL (0-0.7); Eosinophils % (A) 4 %; HCT 44.6 % (34.0-46.0); HGB 14.6 gm/dL (11.4-16.0); Lymphocytes # (A) 1.2 k/uL (1.0-4.8); Lymphocytes % (A) 22 %; MCH 31.1 pg (25.0-35.0); MCHC 32.8 g/dL (31.0-37.0); MCV 94.9 fL (80.0-100.0); Mean Platelet Volume 7.1; Monocytes # (A) 0.4 k/uL (0-1.0); Monocytes % (A) 7 %; Neutrophils # (A) 3.4 k/uL (1.3-7.7); Neutrophils % (A) 64 %; Platelet Count 223 k/uL (150-450); RDW 12.3 % (11.5-15.5); WBC 5.4 k/uL (3.8-10.6)
[2023-01-18 09:41] LABS: African American GFR (CKD) >90 (>60 ml/min/1.73 sqM); Anion Gap 6 mmol/L; Blood Urea Nitrogen 20 mg/dL (7-17); Calcium 8.8 mg/dL (8.4-10.2); Carbon Dioxide 29 mmol/L (22-30); Chloride 101 mmol/L (98-107); Glucose 86 mg/dL (74-99); Non-African American GFR(CKD) >90 (>60 ml/min/1.73 sqM); Sodium 136 mmol/L (137-145)
[2023-01-18 09:44] LABS: Potassium 4.2 mmol/L (3.5-5.1)
[2023-01-18] MEDS ORDERED: LIDOCAINE 1% INJ 10MG/ML (20 ML MDV) ONE (10:41)
[2023-01-18] MEDS ORDERED: MIDAZOLAM 2 MG/2 ML VIAL IV ONE (11:00)
[2023-01-18] MEDS ORDERED: LIDOCAINE 1% INJ 10MG/ML (30 ML VIAL-PF) SQ ONE (11:03)
[2023-01-18] MEDS ORDERED: IOPAMIDOL-370 100ML BTL INJ ONE (11:17)
[2023-01-18] MEDS ORDERED: SODIUM CHLORIDE 0.9% 1,000 ML IV SCH ×2 (11:30)
--- NOTE | 2023-01-18 12:27 | CC ---
CARDIAC CATHETERIZATION REPORT DATE OF SERVICE: 01/18/2023. PROCEDURE PERFORMED: Left heart catheterization and coronary angiography. PERFORMED BY: Dr. Halle Wen. Moderate conscious sedation time was 15 minutes. The patient was administered Versed. Oxygen saturation, hemodynamics, and EKG were monitored closely. CLINICAL INFORMATION: Ms. Libertad Holbrook is a 72-year-old lady with a history of hypertension, hyperlipidemia, and obstructive sleep apnea, who also has significant CAD. In 2010, she presented with mitral regurgitation and LAD lesion that was significant. She underwent stenting of mid LAD. In 2021, I performed stenting of proximal circumflex. RCA was dominant, disease-free. She has been having increasing symptoms of shortness of breath and was seen by Pulmonology, Dr. Zhang, who felt she did not have any significant pulmonary explanation for her shortness of breath. I explained her that sometimes anginal equivalence could be related to her shortness of breath symptoms as well; and therefore, I performed coronary angiography after due discussion regarding risks, benefits, and options. The patient wished to have procedure from right femoral approach. PROCEDURE NOTE: Under local anesthesia and strict aseptic precautions, a 6-Hebrew introducer was placed in the right femoral artery. Using standard Lauren catheters, I performed coronary angiography, and the same right catheter was used to check LV pressures, but LV-gram was not performed. The sheath was taken out, and Angio-Seal device was used to secure hemostasis. The patient tolerated procedure well without complications. CARDIAC CATHETERIZATION FINDINGS: The left ventricular end-diastolic pressure was 11 to 12 mmHg without any gradient across aortic valve. CORONARY ANGIOGRAPHY FINDINGS: 1. RIGHT CORONARY ARTERY: Large dominant vessel, no significant disease, minor irregularities. Bifurcates into large PDA and PLV, both of which supply a sizable amount of myocardium, no significant disease. 2. LEFT MAIN CORONARY ARTERY: Short, patent, disease-free vessel that bifurcates into LAD and circumflex. No significant disease. 3. LEFT ANTERIOR DESCENDING CORONARY ARTERY: Good-caliber vessel, extends along the anterior wall. The mid LAD stent is widely patent with brisk flow. LAD is relatively a small caliber and distribution vessel, but no significant disease. 4. LEFT POSTERIOR CIRCUMFLEX CORONARY ARTERY: This vessel was stented in February 2022. Now, it is widely patent with brisk flow. Nondominant circumflex, large caliber, large distribution. No significant disease. LEFT VENTRICULOGRAM: Left ventriculogram was not performed. FINAL IMPRESSION: This patient has normal filling pressures, no gradient. Right-dominant system. Widely patent mid left anterior descending and proximal circumflex that were stented in 2010 and 2021 respectively. Filling pressures are normal. Left ventriculogram was not performed. RECOMMENDATIONS: Findings were discussed with the patient and family. Continued medical therapy with risk factor modification, and also, we will initiate exercise program to improve her conditioning. The patient will be seen in the office in 1 week. MMODL / IJN: [id number] /
[2023-01-18 17:10] VITALS: BP 135/63; PULSE 44; RESP 16
== END 2023-01-18 16:45 | disposition home or self-care (01) ==
LOC: CATHCVL 08:49
PROVIDERS: ATTEND Internal Medicine Interventional Cardiology
DX: I25.10 Atherosclerotic heart disease of native coronary artery without angina pectoris (principal); I10 Essential (primary) hypertension; E78.5 Hyperlipidemia, unspecified; G47.33 Obstructive sleep apnea (adult) (pediatric); Z82.49 Family history of ischemic heart disease and other diseases of the circulatory system; Z79.82 Long term (current) use of aspirin; I34.0 Nonrheumatic mitral (valve) insufficiency
CPT/HCPCS: 93458; 80048; 85025; C1760; C1769 ×2; C1894; J2250; J2001; Q9967

== ENCOUNTER → 2024-06-14 | Outpatient (CLI) | payer MEDICARE, BC ==
--- NOTE | 2024-06-20 23:39 | CT ---
EXAMINATION TYPE: CT lumbar spine wo con DATE OF EXAM: 06/14/2024 COMPARISON: None HISTORY: 73-year-old female M54.16 CHRONIC LOW BACK PAIN. HX OF SPINAL SX. S32.009K, M54.50, G89.29 TECHNIQUE: Contiguous axial scanning of the lumbar spine without IV contrast. Coronal and sagittal re constructions performed. CT DLP: 1361.8 mGycm Automated exposure control for dose reduction was used. FINDINGS: S-shaped scoliosis of the spine. A single long left-sided Hinds renea extending down to the L3 lev el. Chronic appearing mild vertebral body height loss L3, approximately 15% height loss. Spinal stimulator lead entering the spinal canal extending up beyond the [id number], entering via the L3-L4 interlaminar space. There is moderate to severe degenerative disc disease particularly from L1 through L4 levels and mild at L5-S1. This suggests some possible ongoing motion at the L1-L2 and L2/L3 levels. The more cranial levels show mature ankylosis across the posterior elements. Degenerative grade 1 anterolisthesis L4-L5. Trace grade 1 anterolisthesis L2-L3. Remaining alignment is maintained. 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 Combination of disc bulging and ligamentum flavum thickening contributes to moderate to severe focal spinal canal stenosis at L3-L4 and moderate at L2-L3. Mild L4-L5 and L5-S1. On the right, changes result in severe neuroforaminal stenoses at L3-L4 and L4-L5. Moderate L2-L3. On the left, changes result in mild to moderate neural foraminal stenosis at L1-L2 and mild at L2-L3, L4-L5, and L5-S1. No prevertebral or paravertebral soft tissue abnormality. IMPRESSION: 1. S-SHAPED SCOLIOSIS PARTIALLY VISUALIZED. THERE IS A SINGLE LONG, LEFT-SIDED HINDS RENEA EXTENDI NG DOWN TO THE L3 LEVEL. 2. MODERATE TO SEVERE DEGENERATIVE DISC DISEASE AND HYPERTROPHIC FACET ARTHROPATHY PARTICULARLY FROM L1 THROUGH L4 LEVELS. THIS SUGGESTS SOME POSSIBLE ONGOING MOTION AT THE L1-L2 AND L2-L3 LEVELS DESPIT E THE HINDS RENEA. THE MORE CEPHALIC LEVELS SHOW SURE BONY ANKYLOSIS ACROSS THE POSTERIOR ELEMENTS . 3. CHRONIC APPEARING MILD VERTEBRAL BODY COMPRESSION INJURY OF L3. 4. 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 BAASTRUP'S DISEASE. 5. MODERATE TO SEVERE FOCAL SPINAL CANAL STENOSIS AT L3-L4 AND MODERATE AT L2-L3. 6. Severe right-sided neuroforaminal stenoses at L3-L4 and L4-L5. Moderate on the right at L2-L3. [facility], Workstation: [id number], 06/20/2024 11:36 PM
== END | disposition home or self-care (01) ==
LOC: RADCTMAIN 16:00
PROVIDERS: ATTEND Neurological Surgery
DX: S32.009K Unspecified fracture of unspecified lumbar vertebra, subsequent encounter for fracture with nonunion (principal); M47.26 Other spondylosis with radiculopathy, lumbar region; M51.16 Intervertebral disc disorders with radiculopathy, lumbar region; M43.16 Spondylolisthesis, lumbar region; M48.061 Spinal stenosis, lumbar region without neurogenic claudication; M48.26 Kissing spine, lumbar region
CPT/HCPCS: 72131

== ENCOUNTER → 2024-08-08 | Outpatient (CLI) | payer MEDICARE, BC | END | disposition home or self-care (01) | LOC: RADNMMAIN 07:12 | PROVIDERS: ATTEND Neurological Surgery | DX: Z53.9 Procedure and treatment not carried out, unspecified reason (principal) ==